=== PATIENT | male | born 1950 | race Caucasian/White ===

== ENCOUNTER 2021-11-09 16:32 | Inpatient (IN) ==
[2021-11-09] MEDS ORDERED: FAMOTIDINE 20MG IV PUSH 20 MG/5 ML SYR IV STA (16:53)
[2021-11-09] MEDS ORDERED: SODIUM CHLORIDE 0.9% 1000ML 1,000 ML IV ONE (16:53)
[2021-11-09] MEDS ORDERED: KETOROLAC TROMETHAMINE 15 MG/ML VIAL IV STA (16:53)
[2021-11-09] MEDS ORDERED: ACETAMINOPHEN 1,000 MG/100 ML VIAL IV STA (16:53)
[2021-11-09] MEDS ORDERED: ONDANSETRON INJ 2 MG/ML 2 ML VIAL IV STA (16:53)
[2021-11-09] MEDS ORDERED: MoRPHine SULFATE 4 MG/ML 1 ML CARP\\VIAL IV STA (16:55)
--- NOTE | 2021-11-09 17:12 | Emergency Department Note ---
Impression & Plan Ureterolithiasis, Hydronephrosis due to obstruction of ureter, Leukocytosis, Renal insufficiency, Transaminitis ED Provider Note NAME: MANOLO HENLEY AGE: 70 SEX: M ARRIVES VIA: Walk-In INFORMANT: Patient ED PROVIDER(S): Ross Medellin MD CHIEF COMPLAINT: Left flank pain, referred. PLAN: Disposition: Admit MEDICAL DECISION MAKING: The patient is a pleasant 70-year-old gentleman with a past medical history of prostate cancer status post prostatectomy remotely, nephrolithiasis with recent diagnosis of obstructive 11 mm left proximal ureteral stone diagnosed at outside hospital who presents emergency department referred from the urology office for evaluation and admission for anticipated procedure tomorrow the patient's severe pain. Of note, the patient's reports that he did have a fever to 100.3 on Saturday and contacted their PCPs office requesting antibiotic and was prescribed ciprofloxacin. To her knowledge the patient's urine did not show evidence of infection. Since being on Cipro he has not had any fevers. He reports he has had intermittent nausea but denies vomiting. He has had decreased oral intake due to his nausea. He denies any blood in his urine or pain with urination. On arrival, the patient is uncomfortable no acute distress, afebrile, heart rate in the 90s and stable vital signs. He appears clinically dry. He has mild left flank and left lower quadrant tenderness without guarding or rebound. WBC 12.5K with left shift. H/H 12.5/37.8 without recent for comparison. Platelets 118K without recent for comparison. Chemistry without metabolic acidosis. Creatinine 2.1 without recent values for comparison. Lactic acid 0.8, within normal limits. Procalcitonin is elevated at 9, though in the setting of the patient's renal insufficiency. Total bili 1.3 with direct bilirubin 0.5 and AST and ALT 137 and 99, respectively. Alk phos is 248. UA was obtained and demonstrates WBCs and leuk esterase albeit with epithelial cells present and no bacteria. However this does occur in the setting of the pa tient being on ciprofloxacin. Covid-19 RNA, NAAT negative. CT of the abdomen pelvis was performed and does not demonstrate any significant change in his previously noted 12 x 9 left UPJ stone with associated hydronephrosis when compared to the patient's OSH CT, which had been entered into PACS. Note, comment is made of mildly distended gallbladder with small amount of sludge. There was question of gallbladder thickening however no adjacent inflammatory change. However the patient was again reexamined and continued to have no right-sided or right upper abdominal pain. His Arizmendi sign continue to be negative. The patient was ordered for empiric Zosyn given his leukocytosis with left shift and elevated procalcitonin. He was given IV fluid hydration with 1 L initially and given the patient's renal insufficiency and stable blood pressure additional hydration given at 125cc/hr. Case was discussed with [facility] urology on-call. Appreciate recommendations. Intervention was considered for this evening however OR was not available and given the patient is hemodynamically stable reasonable to plan for stent in the morning. Continue antibiotics and IV fluids. Case was d/w Dr. Glass [facility] hospitalist who will evaluate the patient for admission. Triage Nursing notes reviewed and agree them. Prior medical records reviewed Vital Signs: reviewed and remarkable for no significant abnormalities Differential diagnosis: Renal colic, UTI, appendicitis, diverticulitis, mesenteric ischemia, aortic pathology, infections, inflammatory bowel disease, PUD, biliary pathology, as well as other pathologies. ER treatment provided: See below. Diagnostics interpreted by me: Cardiac Monitoring: An order for continuous cardiac monitoring was placed and demonstrated normal sinus rhythm, 96 bpm, no ectopy. Laboratory studies: See below Imaging studies: See below Consultation(s): [facility] urology. Dr. Glass [facility] hospitalist. HPI: The patient is a pleasant 70-year-old gentleman with a past medical history of prostate cancer status post prostatectomy remotely, nephrolithiasis with recent diagnosis of obstructive 11 mm left proximal ureteral stone diagnosed at outside hospital who presents emergency department referred from the urology office for evaluation and admission for anticipated procedure tomorrow the patient's severe pain. Of note, the patient's reports that he did have a fever to 100.3 on Saturday and contacted their PCPs office requesting antibiotic and was prescribed ciprofloxacin. To her knowledge the patient's urine did not show evidence of infection. Since being on Cipro he has not had any fevers. He reports he has had intermittent nausea but denies vomiting. He has had decreased oral intake due to his nausea. He denies any blood in his urine or pain with urination. ROS: See above HPI for pertinent positives & negatives. A total of 10 systems reviewed and were otherwise negative. VITALS:See Below PHYSICAL EXAMINATION: GENERAL: Awake, alert, uncomfortable-appearing, in no distress HENT: Normocephalic, atraumatic. Oropharynx with dry mucous membranes and otherwise unremarkable. EYES: Normal conjunctiva. Sclera non-icteric. NECK: Supple. No nuchal rigidity. FROM. No JVD. RESPIRATORY: Clear to auscultation. CARDIAC: Regular rate, normal rhythm. Extremities warm and well perfused. Pulses equal. ABDOMEN: Soft, non-distended. Mild left flank and left lower quadrant tenderness no rebound or guarding. No masses. RECTAL: Deferred. MUSCULOSKELETAL: Chest examination reveals no tenderness. The back is symmetrical on inspection without obvious abnormality. There is no CVA tenderness to palpation. No joint edema. LOWER EXTREMITIES: Calves are equal size bilaterally and non-tender. No edema. No discoloration. NEURO: Normal sensorium. No sensory or motor deficits noted. SKIN: No rash or jaundice noted. ED COURSE: Critical Care: I have personally spent greater than 35 minutes of critical care time in the direct management of this patient. This includes bedside care, interpretation of diagnostic studies, and testing, discussion with consultants, patient, and family members, and other required patient management activities. This 35 minutes is in excess of all separately billable procedures. Ross Medellin MD Past Med/Surg History Medical History Chronic back pain History of prostate cancer Nephrolithiasis Osteoarthritis Surgical History History of colonoscopy W/ POLYPECTOMY History of lithotripsy History of prostate biopsy History of prostatectomy History of shoulder surgery RT History of tonsillectomy History of tooth extraction History of total hip arthroplasty BL Family History Father Family history of diabetes mellitus Sister Family history of diabetes mellitus Social History Smoking Status: Never smoker Second Hand Exposure: No; Hx Alcohol Use: Yes Alcohol type: beer Hx Substance Use: No Preferred Language: Nepali Communication 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: 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 Beliefs That Will Affect Care: None Current Living Situation: Spouse Feels Safe at Home: Yes Assistive Devices: Denture - Upper, Denture - Lower and Glasses Allergies Allergies Allergy/AdvReac Type Severity Reaction Status Date / Time No Known Allergies Allergy Verified 11/09/21 16:48 Home Meds Home Medications Medication Instructions Recorded Confirmed ciprofloxacin HCl 500 mg tablet 500 mg PO BID 11/09/21 11/09/21 Previous Rx's Medication Instructions Recorded hydrocodone 5 mg-acetaminophen 325 1 tab PO TID PRN #10 tab 11/08/21 mg tablet Results & Data (ED) Vital Signs Vital Signs - 24 hr 11/09/21 16:34 11/09/21 18:52 11/09/21 19:30 Temperature 36.5 C Temperature Source Temporal Artery Scan Pulse Rate 96 H 65 Respiratory Rate 18 13 Respiratory Effort / Characteristics Non-Labored Respiratory Depth Normal Blood Pressure 119/84 115/65 Blood Pressure Mean 95 81 Pulse Oximetry 94 94 91 Oxygen Delivery Method Room Air Room Air Room Air Sepsis Recent Fever Within 48 Hours No Sepsis New/Unexplained Change in Mental Status No Sepsis Action Taken by Nursing No Action Required 11/09/21 20:00 Temperature Temperature Source Pulse Rate 65 Respiratory Rate 15 Respiratory Effort / Characteristics Respiratory Depth Blood Pressure 109/61 Blood Pressure Mean 77 Pulse Oximetry 90 Oxygen Delivery Method Room Air Sepsis Recent Fever Within 48 Hours Sepsis New/Unexplained Change in Mental Status Sepsis Action Taken by Nursing Laboratory Data Attestation: I reviewed the patient's lab results. Result diagrams: 11/09/21 17:21 11/09/21 17:21 Lab Results 11/09/21 11/09/21 11/09/21 Range/Units 17:21 17:21 17:21 WBC 12.56 H (4.8-10.8) K/uL RBC 3.97 L (4.7-6.1) M/uL Hgb 12.5 L (14.0-18.0) g/dL Hct 37.8 L (42-52) % MCV 95.2 (80-100) fL MCH 31.5 (25-34) pg MCHC 33.1 (32-36) g/dL RDW Std Deviation 47.9 H (36.4-46.3) fL RDW Coeff of Mateo 13.7 (11.5-14.5) % Plt Count 118 L (130-400) K/uL MPV 10.7 H (7.4-10.4) fL Immature Gran % (Auto) 1.8 % Neut % (Auto) 73.8 % Lymph % (Auto) 8.8 % Sanborn % (Auto) 14.9 % Eos % (Auto) 0.4 % Baso % (Auto) 0.3 % Neut # (Auto) 9.28 H (1.4-6.5) K/uL Lymph # (Auto) 1.10 L (1.2-3.4) K/uL [place] # (Auto) 1.87 H (0.11-0.59) K/uL Eos # (Auto) 0.05 (0-0.5) K/uL Baso # (Auto) 0.04 (0-0.2) K/uL Immature Gran # (Auto) 0.22 H (0.00-0.02) K/uL Sodium 135 L (136-145) mmol/L Potassium 4.7 (3.5-5.1) mmol/L Chloride 104 (98-107) mmol/L Carbon Dioxide 24 (21-32) mmol/L Anion Gap 7 (3-11) BUN 42 H (6-23) mg/dl Creatinine 2.15 H (0.6-1.4) mg/dl Est Cr Clr Drug Dosing 32.6 ml/min Est GFR ( Amer) 34.4 ml/min Est GFR (Non-Af Amer) 29.7 ml/min BUN/Creatinine Ratio 19.5 (10-20) Glucose 112 H (70-99(Fasting)) mg/dl Lactate 0.8 (0.4-2.0) mmol/L Calcium 8.4 L (8.5-10.1) mg/dl Total Bilirubin 1.3 H (0.2-1.0) mg/dl Direct Bilirubin (0-0.2) mg/dl AST 137 H (13-39) U/L ALT 99 H (7-52) U/L Alkaline Phosphatase 248 H (34-104) U/L Total Protein 6.4 (6.0-8.3) gm/dl Albumin 3.4 (3.4-5.0) gm/dl Globulin 3.0 (2.5-4.0) gm/dl Albumin/Globulin Ratio 1.1 (0.9-2) Lipase 11 (11-82) U/L Procalcitonin (0-0.5) ng/ml Urine Color Urine Appearance Urine pH Ur Specific Burley Urine Protein Urine Glucose (UA) Urine Ketones Urine Blood Urine Nitrite Urine Bilirubin Urine Urobilinogen Ur Leukocyte Esterase Urine WBC (Auto) Urine RBC (Auto) U Hyaline Cast (Auto) U Epithel Cells (Auto) Urine Bacteria (Auto) Ur Renal Epithelial Cell Urine Crystals Calcium Oxalate Crystal Uric Acid Crystals Triple Phos Crystals Other Crystals Amorphous Sediment Granular Casts Waxy Casts RBC Casts WBC Casts Other Casts Urine Mucus Urine Other Urine Trichomonas Urine Yeast Urine Sperm Ur Oval Fat Bodies SARS-CoV-2, RNA, NAAT (NEGATIVE) 11/09/21 11/09/21 11/09/21 Range/Units 17:21 17:21 17:21 WBC (4.8-10.8) K/uL RBC (4.7-6.1) M/uL Hgb (14.0-18.0) g/dL Hct (42-52) % MCV (80-100) fL MCH (25-34) pg MCHC (32-36) g/dL RDW Std Deviation (36.4-46.3) fL RDW Coeff of Mateo (11.5-14.5) % Plt Count (130-400) K/uL MPV (7.4-10.4) fL Immature Gran % (Auto) % Neut % (Auto) % Lymph % (Auto) % Sanborn % (Auto) % Eos % (Auto) % Baso % (Auto) % Neut # (Auto) (1.4-6.5) K/uL Lymph # (Auto) (1.2-3.4) K/uL Sanborn # (Auto) (0.11-0.59) K/uL Eos # (Auto) (0-0.5) K/uL Baso # (Auto) (0-0.2) K/uL Immature Gran # (Auto) (0.00-0.02) K/uL Sodium (136-145) mmol/L Potassium (3.5-5.1) mmol/L Chloride (98-107) mmol/L Carbon Dioxide (21-32) mmol/L Anion Gap (3-11) BUN (6-23) mg/dl Creatinine (0.6-1.4) mg/dl Est Cr Clr Drug Dosing ml/min Est GFR ( Amer) ml/min Est GFR (Non-Af Amer) ml/min BUN/Creatinine Ratio (10-20) Glucose (70-99(Fasting)) mg/dl Lactate (0.4-2.0) mmol/L Calcium (8.5-10.1) mg/dl Total Bilirubin (0.2-1.0) mg/dl Direct Bilirubin 0.5 H (0-0.2) mg/dl AST (13-39) U/L ALT (7-52) U/L Alkaline Phosphatase (34-104) U/L Total Protein (6.0-8.3) gm/dl Albumin (3.4-5.0) gm/dl Globulin (2.5-4.0) gm/dl Albumin/Globulin Ratio (0.9-2) Lipase (11-82) U/L Procalcitonin 9.90 H (0-0.5) ng/ml Urine Color Cancelled Urine Appearance Cancelled Urine pH Cancelled Ur Specific Burley Cancelled Urine Protein Cancelled Urine Glucose (UA) Cancelled Urine Ketones Cancelled Urine Blood Cancelled Urine Nitrite Cancelled Urine Bilirubin Cancelled Urine Urobilinogen Cancelled Ur Leukocyte Esterase Cancelled Urine WBC (Auto) Cancelled Urine RBC (Auto) Cancelled U Hyaline Cast (Auto) Cancelled U Epithel Cells (Auto) Cancelled Urine Bacteria (Auto) Cancelled Ur Renal Epithelial Cell Cancelled Urine Crystals Cancelled Calcium Oxalate Crystal Cancelled Uric Acid Crystals Cancelled Triple Phos Crystals Cancelled Other Crystals Cancelled Amorphous Sediment Cancelled Granular Casts Cancelled Waxy Casts Cancelled RBC Casts Cancelled WBC Casts Cancelled Other Casts Cancelled Urine Mucus Cancelled Urine Other Cancelled Urine Trichomonas Cancelled Urine Yeast Cancelled Urine Sperm Cancelled Ur Oval Fat Bodies Cancelled SARS-CoV-2, RNA, NAAT (NEGATIVE) 11/09/21 11/09/21 Range/Units 17:27 19:18 WBC (4.8-10.8) K/uL RBC (4.7-6.1) M/uL Hgb (14.0-18.0) g/dL Hct (42-52) % MCV (80-100) fL MCH (25-34) pg MCHC (32-36) g/dL RDW Std Deviation (36.4-46.3) fL RDW Coeff of Mateo (11.5-14.5) % Plt Count (130-400) K/uL MPV (7.4-10.4) fL Immature Gran % (Auto) % Neut % (Auto) % Lymph % (Auto) % Sanborn % (Auto) % Eos % (Auto) % Baso % (Auto) % Neut # (Auto) (1.4-6.5) K/uL Lymph # (Auto) (1.2-3.4) K/uL Sanborn # (Auto) (0.11-0.59) K/uL Eos # (Auto) (0-0.5) K/uL Baso # (Auto) (0-0.2) K/uL Immature Gran # (Auto) (0.00-0.02) K/uL Sodium (136-145) mmol/L Potassium (3.5-5.1) mmol/L Chloride (98-107) mmol/L Carbon Dioxide (21-32) mmol/L Anion Gap (3-11) BUN (6-23) mg/dl Creatinine (0.6-1.4) mg/dl Est Cr Clr Drug Dosing ml/min Est GFR ( Amer) ml/min Est GFR (Non-Af Amer) ml/min BUN/Creatinine Ratio (10-20) Glucose (70-99(Fasting)) mg/dl Lactate (0.4-2.0) mmol/L Calcium (8.5-10.1) mg/dl Total Bilirubin (0.2-1.0) mg/dl Direct Bilirubin (0-0.2) mg/dl AST (13-39) U/L ALT (7-52) U/L Alkaline Phosphatase (34-104) U/L Total Protein (6.0-8.3) gm/dl Albumin (3.4-5.0) gm/dl Globulin (2.5-4.0) gm/dl Albumin/Globulin Ratio (0.9-2) Lipase (11-82) U/L Procalcitonin (0-0.5) ng/ml Urine Color Dark Yellow Urine Appearance Cloudy A Urine pH 5.0 Ur Specific Burley 1.022 Urine Protein 1+ H Urine Glucose (UA) Negative Urine Ketones Negative Urine Blood 3+ H Urine Nitrite Negative Urine Bilirubin Negative Urine Urobilinogen Negative Ur Leukocyte Esterase 2+ H Urine WBC (Auto) >30 H Urine RBC (Auto) 0-4 U Hyaline Cast (Auto) 1-5 U Epithel Cells (Auto) 20-30 H Urine Bacteria (Auto) Negative Ur Renal Epithelial Cell Urine Crystals Calcium Oxalate Crystal Uric Acid Crystals Triple Phos Crystals Other Crystals Amorphous Sediment Granular Casts Waxy Casts RBC Casts WBC Casts Other Casts Urine Mucus Urine Other Urine Trichomonas Urine Yeast Not Reportable Urine Sperm Ur Oval Fat Bodies SARS-CoV-2, RNA, NAAT NEGATIVE (NEGATIVE) Administered Medications Lactated Ringer's (Lr) 1,000 mls @ 125 mls/hr IV .Q8H SARA Stop: 11/10/21 13:29 Last Admin: 11/09/21 21:51 Dose: 125 mls/hr Documented by: [id number] Discontinued Medications Sodium Chloride (Nss 1000ml) 1,000 mls @ 999 mls/hr IV .Q1H1M ONE Stop: 11/09/21 17:53 Last Infusion: 11/09/21 21:33 Dose: 0 mls/hr Documented by: [id number] Admin: 11/09/21 17:40 Dose: 999 mls/hr Documented by: [id number] Acetaminophen (Ofirmev) 1,000 mg in 100 mls @ 400 mls/hr IV NOW STA Stop: 11/09/21 17:07 Last Infusion: 11/09/21 21:33 Dose: 0 mls/hr Documented by: [id number] Admin: 11/09/21 17:39 Dose: 400 mls/hr Documented by: [id number] Famotidine (Pepcid 20mg Iv Push) 20 mg in 5 mls @ 2.5 mls/min IV NOW STA Stop: 11/09/21 16:54 Last Admin: 11/09/21 17:39 Dose: 2.5 mls/min Documented by: [id number] Piperacillin Sod/Tazobactam Sod (Zosyn) 4.5 gm in 120 mls @ 240 mls/hr IV NOW ONE Stop: 11/09/21 19:18 Last Infusion: 11/09/21 19:59 Dose: 0 mls/hr Documented by: [id number] Admin: 11/09/21 19:29 Dose: 240 mls/hr Documented by: [id number] Lactated Ringer's (Lr) 1,000 mls @ 125 mls/hr IV .Q8H SARA Stop: 12/09/21 18:59 Last Infusion: 11/09/21 21:52 Dose: 0 mls/hr Documented by: [id number] Admin: 11/09/21 20:00 Dose: 125 mls/hr Documented by: [id number] Ketorolac Tromethamine (Ketorolac Tromethamine 15 Mg/Ml Vial) 15 mg IV NOW STA Stop: 11/09/21 16:54 Last Admin: 11/09/21 17:40 Dose: 15 mg Documented by: [id number] Morphine Sulfate (Morphine Sulfate 4 Mg/Ml 1 Ml Carp\Vial) 4 mg IV NOW STA Stop: 11/09/21 16:56 Last Admin: 11/09/21 17:40 Dose: 4 mg Documented by: [id number] Ondansetron HCl (Ondansetron Inj 2 Mg/Ml 2 Ml Vial) 4 mg IV NOW STA Stop: 11/09/21 16:54 Last Admin: 11/09/21 17:40 Dose: 4 mg Documented by: [id number] Imaging Data Radiologist's Impression: Abdomen/Pelvis CT 11/09/21 18:[address] WITHOUT CONTRAST CT DOSE: 603.30 mGy.cm HISTORY: left flank pain, obstructing ureteral stone TECHNIQUE: Multiaxial CT images of the abdomen and pelvis were performed without contrast. A dose lowering technique was utilized adhering to the principles of ALARA. COMPARISON STUDY: Outside hospital abdomen and pelvis CT 11/04/2021. FINDINGS: Severe left coronary artery calcifications are noted. Calcified bilateral hilar lymph nodes. Trace left pleural effusion. Calcified granulomas are seen within the lung bases. Bibasilar linear densities consistent with subsegmental atelectasis. No pneumoperitoneum. No pneumatosis. Bilateral total hip arthroplasties. No fractures within the visualized osseous structures. There is 2. Vertebral body hemangioma noted. Small to moderate hiatus hernia. Tiny fat- containing left inguinal hernia. Degenerative changes within the lumbar spine. A 2 cm bilobed hypodense lesion within the left hepatic lobe. This is incompletely characterized on this noncontrast study but statistically represents a cyst. There are few punctate calcified granulomas within the spleen. The adrenal glands and pancreas unremarkable. The gallbladder is mildly distended. There appears to be a small amount of sludge within the gallbladder. Questionable gallbladder wall thickening. However, no surrounding inflammatory change identified. Mild to moderate bilateral perinephric edema, unchanged. This is likely chronic. There is a punctate stone within the right kidney. No right- sided hydronephrosis. The bladder is not well visualized due to metallic artifact from the bilateral hip hardware. However, no definite bladder wall thickening. There is a 12 x 9 mm left UPJ stone which is unchanged in position. Moderate left hydronephrosis persists. There are few punctate stones within the left kidney. No retroperitoneal lymphadenopathy. Moderate calcified plaque within the normal caliber abdominal aorta. No definite pelvic free fluid. Suboptimal evaluation for bowel pathology due to the lack of intravenous and oral contrast. However, there is no definite bowel wall thickening or obstruction. Postoperative changes likely representing a prior ileocecectomy. 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 IMPRESSION: 1. No significant change in the 12 x 9 mm left UPJ stone resulting in moderate left hydronephrosis. 2. Stable bilateral nephrolithiasis. 3. No definite bowel wall thickening or obstruction. 4. Mildly distended gallbladder which appears to contain a small amount of sludge. There is questionable gallbladder wall thickening. However, no adjacent inflammatory change. If the patient is complaining of right upper quadrant pain then consider follow-up abdominal ultrasound for further evaluation. 5. Trace left pleural effusion. 6. Additional findings as described above. ACT 112: Negative or not required by law. Electronically signed by: Benigno Lauren M.D. 11/09/2021 6:52 PM Discharge Plan Visit Data Chief Complaint: Flank Pain Stated Complaint: KIDNEY PAIN, POS STONE ED Provider: Ross Medellin Discharge Problem: Ureterolithiasis, Hydronephrosis due to obstruction of ureter, Leukocytosis, Renal insufficiency, Transaminitis Patient Disposition: Admitted As Inpatient Discharge Instructions Interventions: ED Discharge Assessment Last Done: 11/09/21 20:55 Discharge Problem: Leukocytosis Qualifiers: Leukocytosis type: bandemia Qualified Code(s): D72.825 - Bandemia
[2021-11-09 17:46] LABS: Basophils # (auto) 0.04 K/uL (0-0.2); Basophils % (auto) 0.3 %; Eosinophils # (auto) 0.05 K/uL (0-0.5); Eosinophils % (auto) 0.4 %; Hematocrit (blood only) 37.8 % (42-52); Hemoglobin 12.5 g/dL (14.0-18.0); Immature Granulocytes # (auto) 0.22 K/uL (0.00-0.02); Immature Granulocytes % (auto) 1.8 %; Lymphocytes % (auto) 8.8 %; Mean Corpuscular Hemoglobin 31.5 pg (25-34); Mean Corpuscular Hgb Conc 33.1 g/dL (32-36); Mean Corpuscular Volume 95.2 fL (80-100); Mean Platelet Volume 10.7 fL (7.4-10.4); Monocytes # (auto) 1.87 K/uL (0.11-0.59); Monocytes % (auto) 14.9 %; Neutrophils # (auto) 9.28 K/uL (1.4-6.5); Neutrophils % (auto) 73.8 %; Platelet Count 118 K/uL (130-400); RDW Coefficient of Variation 13.7 % (11.5-14.5); RDW Standard Deviation 47.9 fL (36.4-46.3); Red Blood Count 3.97 M/uL (4.7-6.1); White Blood Count 12.56 K/uL (4.8-10.8)
[2021-11-09 18:11] LABS: Albumin Globulin Ratio 1.1 (0.9-2); Albumin Level 3.4 gm/dl (3.4-5.0); BUN Creatinine Ratio 19.5 (10-20); Bilirubin,Total 1.3 mg/dl (0.2-1.0); Calcium 8.4 mg/dl (8.5-10.1); Creatinine Clr Calc Pharmacy 32.6 ml/min; Est GFR (African American) 34.4 ml/min; Est GFR (Non-African American) 29.7 ml/min; Potassium 4.7 mmol/L (3.5-5.1); Total Protein 6.4 gm/dl (6.0-8.3)
[2021-11-09] MEDS ORDERED: PIPERACILL/TAZOBAC CONSULT ACTIVE PRN ×2 (18:49→21:30)
[2021-11-09] MEDS ORDERED: PIPERACILLIN/TAZOBACTAM 4.5 GM/120 ML BAG IV ONE (18:49)
--- NOTE | 2021-11-09 18:55 | CT Scan Report ---
ABDOMEN AND PELVIS CT WITHOUT CONTRAST CT DOSE: 603.30 mGy.cm HISTORY: left flank pain, obstructing ureteral stone TECHNIQUE: Multiaxial CT images of the abdomen and pelvis were performed without contrast. A dose lo wering technique was utilized adhering to the principles of ALARA. COMPARISON STUDY: Outside hospital abdomen and pelvis CT 11/04/2021. FINDINGS: Severe left coronary artery calcifications are noted. Calcified bilateral hilar lymph nodes . Trace left pleural effusion. Calcified granulomas are seen within the lung bases. Bibasilar linear densities consistent with subsegmental atelectasis. No pneumoperitoneum. No pneumatosis. Bilateral to [place] hip arthroplasties. No fractures within the visualized osseous structures. There is 2. Vertebral body hemangioma noted. Small to moderate hiatus hernia. Tiny fat-containing left inguina l hernia. Degenerative changes within the lumbar spine. A 2 cm bilobed hypodense lesion within the le ft hepatic lobe. This is incompletely characterized on this noncontrast study but statistically repre sents a cyst. There are few punctate calcified granulomas within the spleen. The adrenal glands and p ancreas unremarkable. The gallbladder is mildly distended. There appears to be a small amount of slud ge within the gallbladder. Questionable gallbladder wall thickening. However, no surrounding inflamma tory change identified. Mild to moderate bilateral perinephric edema, unchanged. This is likely chron ic. There is a punctate stone within the right kidney. No right-sided hydronephrosis. The bladder is not well visualized due to metallic artifact from the bilateral hip hardware. However, no definite bl adder wall thickening. There is a 12 x 9 mm left UPJ stone which is unchanged in position. Moderate l eft hydronephrosis persists. There are few punctate stones within the left kidney. No retroperitoneal lymphadenopathy. Moderate calcified plaque within the normal caliber abdominal aorta. No definite pe lvic free fluid. Suboptimal evaluation for bowel pathology due to the lack of intravenous and oral co ntrast. However, there is no definite bowel wall thickening or obstruction. Postoperative changes lik andrew representing a prior ileocecectomy. 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 IMPRESSION: 1. No significant change in the 12 x 9 mm left UPJ stone resulting in moderate left hydronephrosis. 2. Stable bilateral nephrolithiasis. 3. No definite bowel wall thickening or obstruction. 4. Mildly distended gallbladder which appears to contain a small amount of sludge. There is questiona ble gallbladder wall thickening. However, no adjacent inflammatory change. If the patient is complain ing of right upper quadrant pain then consider follow-up abdominal ultrasound for further evaluation. 5. Trace left pleural effusion. 6. Additional findings as described above. ACT 112: Negative or not required by law. Electronically signed by: Benigno Lauren M.D. 11/09/2021 6:52 PM
[2021-11-09] MEDS ORDERED: LACTATED RINGER'S 1,000 ML IV SCH (19:00)
[2021-11-09 19:36] LABS: Appearance Urine Cloudy (Clear); Bacteria Urine Automated Negative (Negative); Bilirubin Urine Negative (Negative); Blood Urine 3+ (Negative); Color Urine Dark Yellow; Epithelial Cell Urine Auto 20-30 /lpf (0-5); Glucose Urine UA Negative (Negative); Ketones Urine Negative (Negative); Leukocyte Esterase Urine 2+ (Negative); Nitrite Urine Negative (Negative); Protein Urine 1+ (Negative); RBC Urine Automated 0-4 /hpf (0-4); Specific Gravity Urine 1.022 (1.000-1.030); Urobilinogen Urine Negative (Negative); WBC Urine Automated >30 /hpf (0-5)
--- NOTE | 2021-11-09 20:05 | History & Physical Report ---
Date of Service November 09, 2021 Assessment & Plan (1) Nephrolithiasis: Plan: 70yo male with history of prior nephrolithiasis presenting with large 12 x 9mm renals stone at the left uretero-pelvic junction with moderate left hydronephrosis. +UA with elevated procalcitonin. Patient presently afebrile, HD stable, nontoxic in appearance. -Admit to medical -Follow urine cultures -Continue Zosyn -Morphine PRN -Tylenol PRN -Urology consultation appreciated. Will keep patient NPO after midnight for planned OR in AM (2) MIRIAM (acute kidney injury): Plan: BUN=42, Cr=2.15 from normal baseline in 2019. Suspect pre-renal etiology. Patient has not been eating or drinking x 5 days. -Continue IVF - LR at 125mL/hr x 2 liters -Avoid nephrotoxic agents -Renal dosing of Zosyn and other medications as needed -Repeat chemistry in AM (3) Abnormal LFTs: Plan: Etiology unclear. Patient has no RUQ tenderness. Negative Arizmendi's. -Repeat LFTs in AM -Zosyn as above for UTI + stone Plan: F/E/N - LR at 125mL/hr x 2 liters, monitor electroltyes and replete as needed, Clear liquid diet now with NPO after midnight Ppx - no prophylaxis now Code - Full Dispo - Admit to medical History of Present Illness Chief Complaint: Left flank pain Primary Care Provider: Helena Pederson MD Jimmie Alexandre is a 70yo male presenting with left flank pain. Patient was diagnosed with a large left nephrolithiasis 5 days ago at an outside facility by CT scan - 1cm stone at the left ureteral pelvic junction. Per , no evidence of infection in the urine at that time. He was doing fairly well at home, managing pain. He had an elevated temperature of 100.3 on Saturday therefore contacted his PCP and was given a prescription for Cipro which he has been taking without difficulty as well as hydrocodone. He was seen by Urology this afternoon. Patient presents to the ER for significant flank pain. He has not had fever since starting the antibiotic. Denies rigors. He has some nausea and has not been eating or drinking over the last 5 days. Denies chest pain, cough, SOB, abdominal pain, vomiting, diarrhea, constipation. No additional complaints at this time. ER Course: Tylenol 1gm, Pepcid 20mg IV, NSS x 1L, Zofran 4mg IV, Toradol 15mg IV, Morphine 4mg IV, Zosyn 4.5gm Allergies Allergy/AdvReac Type Severity Reaction Status Date / Time No Known Allergies Allergy Verified 11/09/21 16:48 Home Medications Medication Instructions Recorded Confirmed Type hydrocodone 5 mg-acetaminophen 325 1 tab PO TID PRN #10 tab 11/08/21 11/09/21 Rx mg tablet ciprofloxacin HCl 500 mg tablet 500 mg PO BID 11/09/21 11/09/21 History Past Med/Surg History Medical History (Updated 11/09/21 @ 20:41 by Brianna Glass DO) Chronic back pain History of prostate cancer Nephrolithiasis Osteoarthritis Surgical History History of colonoscopy W/ POLYPECTOMY History of lithotripsy History of prostate biopsy History of prostatectomy History of shoulder surgery RT History of tonsillectomy History of tooth extraction History of total hip arthroplasty BL Family History Father Family history of diabetes mellitus Sister Family history of diabetes mellitus Social History Smoking Status: Never smoker Second Hand Exposure: No; Hx Alcohol Use: Yes Alcohol type: beer Hx Substance Use: No Preferred Language: Ghanaian Communication Ability: Effective Program/Music Director Required: No Beliefs That Will Affect Care: None Current Living Situation: Spouse Feels Safe at Home: Yes Assistive Devices: Denture - Upper, Denture - Lower and Glasses Review of Systems Review of Systems: All systems reviewed & are unremarkable except as noted in HPI & below Physical Exam Physical Exam: General: patient resting comfortably, NAD, non-toxic in appearance, AA&O x 4 Skin: warm, dry, intact, no rashes or lesions HEENT: NC/AT, PERRL, EOMI, anicteric sclera, conjunctiva without injection, external ear normal to inspection and nontender, nares patent, dry mucus membranes, dentition intact, no oropharyngeal lesions, neck supple, trachea midline, no LAD, no thyromegaly, no JVD Heart: +S1/S2, regular, no m/r/g Lungs: equal air entry bilaterally, no rales/rhonchi/wheezes Abd: +BS, soft, ND, LLQ abdominal pain without rebound/guarding, no masses/organomegaly/ascites, left flank tenderness Ext: warm, 2+ pulses in UE/LE bilaterally, no clubbing/cyanosis or edema Neuro: nonfocal, patient AA&O x 4, speech intact, no facial droop, moving all extremities on command with equal strength 5/5 Results & Data Results & Data ([facility]) Vital Signs (Past 12 Hours) Vital Signs Temp Pulse Resp BP Pulse Ox 11/09/21 19:30 65 13 115/65 91 11/09/21 18:52 94 11/09/21 16:34 36.5 C 96 H 18 119/84 94 Laboratory Results Laboratory Results WBC 12.56 K/uL (4.8-10.8) H 11/09/21 17:21 RBC 3.97 M/uL (4.7-6.1) L 11/09/21 17:21 Hgb 12.5 g/dL (14.0-18.0) L 11/09/21 17:21 Hct 37.8 % (42-52) L 11/09/21 17:21 MCV 95.2 fL (80-100) 11/09/21 17:21 MCH 31.5 pg (25-34) 11/09/21 17:21 MCHC 33.1 g/dL (32-36) 11/09/21 17:21 RDW Std Deviation 47.9 fL (36.4-46.3) H 11/09/21 17:21 RDW Coeff of Mateo 13.7 % (11.5-14.5) 11/09/21 17:21 Plt Count 118 K/uL (130-400) L 11/09/21 17:21 MPV 10.7 fL (7.4-10.4) H 11/09/21 17:21 Immature Gran % (Auto) 1.8 % 11/09/21 17:21 Neut % (Auto) 73.8 % 11/09/21 17:21 Lymph % (Auto) 8.8 % 11/09/21 17:21 [place] % (Auto) 14.9 % 11/09/21 17:21 Eos % (Auto) 0.4 % 11/09/21 17:21 Baso % (Auto) 0.3 % 11/09/21 17:21 Neut # (Auto) 9.28 K/uL (1.4-6.5) H 11/09/21 17:21 Lymph # (Auto) 1.10 K/uL (1.2-3.4) L 11/09/21 17:21 [place] # (Auto) 1.87 K/uL (0.11-0.59) H 11/09/21 17:21 Eos # (Auto) 0.05 K/uL (0-0.5) 11/09/21 17:21 Baso # (Auto) 0.04 K/uL (0-0.2) 11/09/21 17:21 Immature Gran # (Auto) 0.22 K/uL (0.00-0.02) H 11/09/21 17:21 Sodium 135 mmol/L (136-145) L 11/09/21 17:21 Potassium 4.7 mmol/L (3.5-5.1) 11/09/21 17:21 Chloride 104 mmol/L (98-107) 11/09/21 17:21 Carbon Dioxide 24 mmol/L (21-32) 11/09/21 17:21 Anion Gap 7 (3-11) 11/09/21 17:21 BUN 42 mg/dl (6-23) H 11/09/21 17:21 Creatinine 2.15 mg/dl (0.6-1.4) H 11/09/21 17:21 Est Cr Clr Drug Dosing 32.6 ml/min 11/09/21 17:21 Est GFR ( Amer) 34.4 ml/min 11/09/21 17:21 Est GFR (Non-Af Amer) 29.7 ml/min 11/09/21 17:21 BUN/Creatinine Ratio 19.5 (10-20) 11/09/21 17:21 Glucose 112 mg/dl (70-99(Fasting)) H 11/09/21 17:21 Lactate 0.8 mmol/L (0.4-2.0) 11/09/21 17:21 Calcium 8.4 mg/dl (8.5-10.1) L 11/09/21 17:21 Total Bilirubin 1.3 mg/dl (0.2-1.0) H 11/09/21 17:21 Direct Bilirubin 0.5 mg/dl (0-0.2) H 11/09/21 17:21 AST 137 U/L (13-39) H 11/09/21 17:21 ALT 99 U/L (7-52) H 11/09/21 17:21 Alkaline Phosphatase 248 U/L (34-104) H 11/09/21 17:21 Total Protein 6.4 gm/dl (6.0-8.3) 11/09/21 17:21 Albumin 3.4 gm/dl (3.4-5.0) 11/09/21 17:21 Globulin 3.0 gm/dl (2.5-4.0) 11/09/21 17:21 Albumin/Globulin Ratio 1.1 (0.9-2) 11/09/21 17:21 Lipase 11 U/L (11-82) 11/09/21 17:21 Procalcitonin 9.90 ng/ml (0-0.5) H 11/09/21 17:21 Urine Color Dark Yellow 11/09/21 19:18 Urine Appearance Cloudy (Clear) A 11/09/21 19:18 Urine pH 5.0 (4.5-7.5) 11/09/21 19:18 Ur Specific Ubly 1.022 (1.000-1.030) 11/09/21 19:18 Urine Protein 1+ (Negative) H 11/09/21 19:18 Urine Glucose (UA) Negative (Negative) 11/09/21 19:18 Urine Ketones Negative (Negative) 11/09/21 19:18 Urine Blood 3+ (Negative) H 11/09/21 19:18 Urine Nitrite Negative (Negative) 11/09/21 19:18 Urine Bilirubin Negative (Negative) 11/09/21 19:18 Urine Urobilinogen Negative (Negative) 11/09/21 19:18 Ur Leukocyte Esterase 2+ (Negative) H 11/09/21 19:18 Urine WBC (Auto) >30 /hpf (0-5) H 11/09/21 19:18 Urine RBC (Auto) 0-4 /hpf (0-4) 11/09/21 19:18 U Hyaline Cast (Auto) 1-5 /lpf (0-5) 11/09/21 19:18 U Epithel Cells (Auto) 20-30 /lpf (0-5) H 11/09/21 19:18 Urine Bacteria (Auto) Negative (Negative) 11/09/21 19:18 Ur Renal Epithelial Cell Cancelled 11/09/21 17:21 Urine Crystals Cancelled 11/09/21 17:21 Calcium Oxalate Crystal Cancelled 11/09/21 17:21 Uric Acid Crystals Cancelled 11/09/21 17:21 Triple Phos Crystals Cancelled 11/09/21 17:21 Other Crystals Cancelled 11/09/21 17:21 Amorphous Sediment Cancelled 11/09/21 17:21 Granular Casts Cancelled 11/09/21 17:21 Waxy Casts Cancelled 11/09/21 17:21 RBC Casts Cancelled 11/09/21 17:21 WBC Casts Cancelled 11/09/21 17:21 Other Casts Cancelled 11/09/21 17:21 Urine Mucus Cancelled 11/09/21 17:21 Urine Other Cancelled 11/09/21 17:21 Urine Trichomonas Cancelled 11/09/21 17:21 Urine Yeast Not Reportable 11/09/21 19:18 Urine Sperm Cancelled 11/09/21 17:21 Ur Oval Fat Bodies Cancelled 11/09/21 17:21 SARS-CoV-2, RNA, NAAT NEGATIVE (NEGATIVE) 11/09/21 17:27 Impressions Abdomen/Pelvis CT 11/09/21 18:[address] WITHOUT CONTRAST CT DOSE: 603.30 mGy.cm HISTORY: left flank pain, obstructing ureteral stone TECHNIQUE: Multiaxial CT images of the abdomen and pelvis were performed without contrast. A dose lowering technique was utilized adhering to the principles of ALARA. COMPARISON STUDY: Outside hospital abdomen and pelvis CT 11/04/2021. FINDINGS: Severe left coronary artery calcifications are noted. Calcified bilateral hilar lymph nodes. Trace left pleural effusion. Calcified granulomas are seen within the lung bases. Bibasilar linear densities consistent with subsegmental atelectasis. No pneumoperitoneum. No pneumatosis. Bilateral total hip arthroplasties. No fractures within the visualized osseous structures. There is 2. Vertebral body hemangioma noted. Small to moderate hiatus hernia. Tiny fat- containing left inguinal hernia. Degenerative changes within the lumbar spine. A 2 cm bilobed hypodense lesion within the left hepatic lobe. This is incompletely characterized on this noncontrast study but statistically represents a cyst. There are few punctate calcified granulomas within the spleen. The adrenal glands and pancreas unremarkable. The gallbladder is mildly distended. There appears to be a small amount of sludge within the gallbladder. Questionable gallbladder wall thickening. However, no surrounding inflammatory change identified. Mild to moderate bilateral perinephric edema, unchanged. This is likely chronic. There is a punctate stone within the right kidney. No right- sided hydronephrosis. The bladder is not well visualized due to metallic artifact from the bilateral hip hardware. However, no definite bladder wall thickening. There is a 12 x 9 mm left UPJ stone which is unchanged in position. Moderate left hydronephrosis persists. There are few punctate stones within the left kidney. No retroperitoneal lymphadenopathy. Moderate calcified plaque within the normal caliber abdominal aorta. No definite pelvic free fluid. Suboptimal evaluation for bowel pathology due to the lack of intravenous and oral contrast. However, there is no definite bowel wall thickening or obstruction. Postoperative changes likely representing a prior ileocecectomy. 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 IMPRESSION: 1. No significant change in the 12 x 9 mm left UPJ stone resulting in moderate left hydronephrosis. 2. Stable bilateral nephrolithiasis. 3. No definite bowel wall thickening or obstruction. 4. Mildly distended gallbladder which appears to contain a small amount of sludge. There is questionable gallbladder wall thickening. However, no adjacent inflammatory change. If the patient is complaining of right upper quadrant pain then consider follow-up abdominal ultrasound for further evaluation. 5. Trace left pleural effusion. 6. Additional findings as described above. ACT 112: Negative or not required by law. Electronically signed by: Benigno Lauren M.D. 11/09/2021 6:52 PM Code Status & VTE Plan VTE Prophylaxis Plan VTE Prophylaxis will be ordered: No PG Care Time/CCT Total # of Minutes Spent Total Time Spent with Patient: Total time spent is greater than 50% in coordination of care (as documented) at patient's floor/unit and/or counseling patient: Coding Level of Care Code 13290 Initial Inpt Care Lvl 2 Diagnoses Nephrolithiasis N20.0 MIRIAM (acute kidney injury) N17.9 Abnormal LFTs R79.89
[2021-11-09] MEDS ORDERED: ondansetron HCL 6 MG in DEXTROSE 5% 50 ML IV PRN (21:30)
[2021-11-09] MEDS ORDERED: DOCUSATE SODIUM 100 MG CAP PO PRN (21:30)
[2021-11-09] MEDS ORDERED: MoRPHine SULFATE 2 MG/ML CARP IV PRN (21:30)
[2021-11-09] MEDS: LACTATED RINGER'S 1,000 ML IV SCH (21:51)
[2021-11-10] MEDS: PIPERACILLIN/TAZOBACTAM 3.375 GM in DEXTROSE 5% 100 ML IV SCH ×3 (01:47→16:59)
[2021-11-10] MEDS: LACTATED RINGER'S 1,000 ML IV SCH (05:06)
--- NOTE | 2021-11-10 07:35 | Hospitalist Progress Note ---
Date of Service November 10, 2021 Assessment & Plan (1) Sepsis: Plan: Leukocytosis, tachycardia, +UA, procal 9, MIRIAM with Cr 2.15 with normal baseline (1.1 earlier this week at [facility], WBC was 14k, sent with PO opiates but no abx until PCP sent Cipro after temp 100.3 Saturday). Lactic wnl at 0.8 likely 2nd to obstructing stone, urology on consult Also obtaining RUQ US, Anaplasmosis given elevated LFT/low plt and thickening onCTAP NPO for OR today with Urology WBC improving, Cr 2.01. afebrile (of note, given dose toradol 15mg IV in ER, would avoid NSAIDs) IVF ordered, would decreased rate to 80cc/hr post-op Remains on Zosyn Monitor blood/urine cx (has taken ~6 tablets Cipro to note) Added flomax HS Monitor labs in AM (2) Nephrolithiasis: Plan: 70yo male with history of prior nephrolithiasis presenting with large 12 x 9mm renals stone at the left uretero-pelvic junction with moderate left hydronephrosis. +UA with elevated procalcitonin. Cr 2.15 (unclear baseline as does not have many other values in system, last Cr 1.0 in 2019) Patient presently afebrile, HD stable, nontoxic in appearance. Zosyn/IVF/Urology consult/pain control as needed Outlined as above (3) MIRIAM (acute kidney injury): Plan: BUN=42, Cr=2.15 from normal baseline in 2019. Suspect pre-renal and post-renal etiology. Patient has not been eating or drinking x 5 days. IVF as above, urology consulted given obstructing stone Avoid further NSAIDs as given in ER, renally dose medications when able BMP in AM (4) Abnormal LFTs: Plan: Etiology unclear. Patient has no RUQ tenderness. Negative Arizmendi's. LFTs remain elevated but improved Given findings on CTAP on admission, will check RUQ Also checking anaplasmosis given low platelets Monitor in AM Plan: F/E/N - LR at 125mL/hr x 2 liters, monitor electrolytes and replete as needed, NPO for OR this morning Ppx - no prophylaxis now as planned OR, SCDs ordered Code - Full Admission and Anticipated Discharge Date Admission Date: November 09, 2021 Supervising Physician Co-Signing Physician Notes PA Supervision Note: I did not personally see or examine the patient today, but I verified all escamilla points of GEOVANNA Wakefield's assessment and plan with the following exceptions/additions: None Subjective Eval this morning. Pain currently controlled but present to LLQ/L flank. He notes problems started last Saturday. (Of note, no BM since last reported). He had been sitting down after dinner and watching tv w/ and stated didn't feel well. Up to bathroom and vomited up everything he had eaten for the day. He notes he was feeling better after that but on Saturday after working in [employer] him and went out to eat pizza. He states after he ate a piece he became nauseated again and vomited. No bile. No diarrhea noted. No RUQ pain but still some nausea. Urine dark/blood tinged. Denies NSAID use and was only using Tylenol arthritis at home. Went to ER w increased pain saturday, diagnosed with stone but given po pain meds and shot for pain but no abx. Had fever 100.3 following and placed on Cipro by PCP. He believes he took doses from Saturday evening up until morning when seen by Urology in afternoon w continued pain/discomfort and came to ER for intervention. Currently NPO for OR. Discussed checking RUQ given elevated LFTs and nausea/vomiting. No fever/chills currently , denies chest pain or shortness of breath. Questions/concerns addressed at this time. Review of Systems Review of Systems: All systems reviewed & are unremarkable except as noted in HPI & below Physical Exam Physical Exam: General: WN/WD male, resting comfortably in bed, NAD HEENT: head normocephalic, atraumatic, pupils equal and reactive to light, mm DRY, trachea midline, no deviation Resp: CTAB, no w/c/r, on room air CV: RRR, no m/r/g, no edema, pulses palpable GI: +BS, slightly hypoactive, tender to palpation LLQ/L flank. +L CVA tenderness : no borja MSK/Neuro: moves all extremities, no focal deficits, answering questions appropriately, not confused, no slurred speech/facial droop Psych: AOX3, cooperative Results & Data Results & Data ([facility]) Vital Signs (Past 12 Hours) Vital Signs Temp Pulse Pulse Resp BP BP Pulse Ox 11/10/21 07:02 36.7 C 79 18 131/73 94 11/10/21 05:09 36.8 C 64 17 112/63 94 11/10/21 02:14 36.6 C 59 L 16 93/54 L 94 11/09/21 21:30 36.6 C 58 L 17 115/64 95 11/09/21 20:30 65 12 102/59 L 90 11/09/21 20:00 65 15 109/61 90 Laboratory Results 11/09/21 11/09/21 11/09/21 Range/Units 21:47 19:18 17:27 WBC (4.8-10.8) K/uL RBC (4.7-6.1) M/uL Hgb (14.0-18.0) g/dL Hct (42-52) % MCV (80-100) fL MCH (25-34) pg MCHC (32-36) g/dL RDW Std Deviation (36.4-46.3) fL RDW Coeff of Mateo (11.5-14.5) % Plt Count (130-400) K/uL MPV (7.4-10.4) fL Immature Gran % (Auto) % Neut % (Auto) % Lymph % (Auto) % O'Brien % (Auto) % Eos % (Auto) % Baso % (Auto) % Neut # (Auto) (1.4-6.5) K/uL Lymph # (Auto) (1.2-3.4) K/uL O'Brien # (Auto) (0.11-0.59) K/uL Eos # (Auto) (0-0.5) K/uL Baso # (Auto) (0-0.2) K/uL Immature Gran # (Auto) (0.00-0.02) K/uL Sodium (136-145) mmol/L Potassium (3.5-5.1) mmol/L Chloride (98-107) mmol/L Carbon Dioxide (21-32) mmol/L Anion Gap (3-11) BUN (6-23) mg/dl Creatinine (0.6-1.4) mg/dl Est Cr Clr Drug Dosing ml/min Est GFR ( Amer) ml/min Est GFR (Non-Af Amer) ml/min BUN/Creatinine Ratio (10-20) Glucose (70-99(Fasting)) mg/dl Lactate (0.4-2.0) mmol/L Calcium (8.5-10.1) mg/dl Magnesium 2.4 (1.7-2.4) mg/dl Total Bilirubin (0.2-1.0) mg/dl Direct Bilirubin (0-0.2) mg/dl AST (13-39) U/L ALT (7-52) U/L Alkaline Phosphatase (34-104) U/L Total Protein (6.0-8.3) gm/dl Albumin (3.4-5.0) gm/dl Globulin (2.5-4.0) gm/dl Albumin/Globulin Ratio (0.9-2) Lipase (11-82) U/L Procalcitonin (0-0.5) ng/ml Urine Color Dark Yellow Urine Appearance Cloudy A Urine pH 5.0 Ur Specific [place] 1.022 Urine Protein 1+ H Urine Glucose (UA) Negative Urine Ketones Negative Urine Blood 3+ H Urine Nitrite Negative Urine Bilirubin Negative Urine Urobilinogen Negative Ur Leukocyte Esterase 2+ H Urine WBC (Auto) >30 H Urine RBC (Auto) 0-4 U Hyaline Cast (Auto) 1-5 U Epithel Cells (Auto) 20-30 H Urine Bacteria (Auto) Negative Ur Renal Epithelial Cell Urine Crystals Calcium Oxalate Crystal Uric Acid Crystals Triple Phos Crystals Other Crystals Amorphous Sediment Granular Casts Waxy Casts RBC Casts WBC Casts Other Casts Urine Mucus Urine Other Urine Trichomonas Urine Yeast Not Reportable Urine Sperm Ur Oval Fat Bodies SARS-CoV-2, RNA, NAAT NEGATIVE (NEGATIVE) 11/09/21 11/09/21 11/09/21 Range/Units 17:21 17:21 17:21 WBC (4.8-10.8) K/uL RBC (4.7-6.1) M/uL Hgb (14.0-18.0) g/dL Hct (42-52) % MCV (80-100) fL MCH (25-34) pg MCHC (32-36) g/dL RDW Std Deviation (36.4-46.3) fL RDW Coeff of Mateo (11.5-14.5) % Plt Count (130-400) K/uL MPV (7.4-10.4) fL Immature Gran % (Auto) % Neut % (Auto) % Lymph % (Auto) % O'Brien % (Auto) % Eos % (Auto) % Baso % (Auto) % Neut # (Auto) (1.4-6.5) K/uL Lymph # (Auto) (1.2-3.4) K/uL O'Brien # (Auto) (0.11-0.59) K/uL Eos # (Auto) (0-0.5) K/uL Baso # (Auto) (0-0.2) K/uL Immature Gran # (Auto) (0.00-0.02) K/uL Sodium (136-145) mmol/L Potassium (3.5-5.1) mmol/L Chloride (98-107) mmol/L Carbon Dioxide (21-32) mmol/L Anion Gap (3-11) BUN (6-23) mg/dl Creatinine (0.6-1.4) mg/dl Est Cr Clr Drug Dosing ml/min Est GFR ( Amer) ml/min Est GFR (Non-Af Amer) ml/min BUN/Creatinine Ratio (10-20) Glucose (70-99(Fasting)) mg/dl Lactate (0.4-2.0) mmol/L Calcium (8.5-10.1) mg/dl Magnesium (1.7-2.4) mg/dl Total Bilirubin (0.2-1.0) mg/dl Direct Bilirubin 0.5 H (0-0.2) mg/dl AST (13-39) U/L ALT (7-52) U/L Alkaline Phosphatase (34-104) U/L Total Protein (6.0-8.3) gm/dl Albumin (3.4-5.0) gm/dl Globulin (2.5-4.0) gm/dl Albumin/Globulin Ratio (0.9-2) Lipase (11-82) U/L Procalcitonin 9.90 H (0-0.5) ng/ml Urine Color Cancelled Urine Appearance Cancelled Urine pH Cancelled Ur Specific [place] Cancelled Urine Protein Cancelled Urine Glucose (UA) Cancelled Urine Ketones Cancelled Urine Blood Cancelled Urine Nitrite Cancelled Urine Bilirubin Cancelled Urine Urobilinogen Cancelled Ur Leukocyte Esterase Cancelled Urine WBC (Auto) Cancelled Urine RBC (Auto) Cancelled U Hyaline Cast (Auto) Cancelled U Epithel Cells (Auto) Cancelled Urine Bacteria (Auto) Cancelled Ur Renal Epithelial Cell Cancelled Urine Crystals Cancelled Calcium Oxalate Crystal Cancelled Uric Acid Crystals Cancelled Triple Phos Crystals Cancelled Other Crystals Cancelled Amorphous Sediment Cancelled Granular Casts Cancelled Waxy Casts Cancelled RBC Casts Cancelled WBC Casts Cancelled Other Casts Cancelled Urine Mucus Cancelled Urine Other Cancelled Urine Trichomonas Cancelled Urine Yeast Cancelled Urine Sperm Cancelled Ur Oval Fat Bodies Cancelled SARS-CoV-2, RNA, NAAT (NEGATIVE) 11/09/21 11/09/21 11/09/21 Range/Units 17:21 17:21 17:21 WBC 12.56 H (4.8-10.8) K/uL RBC 3.97 L (4.7-6.1) M/uL Hgb 12.5 L (14.0-18.0) g/dL Hct 37.8 L (42-52) % MCV 95.2 (80-100) fL MCH 31.5 (25-34) pg MCHC 33.1 (32-36) g/dL RDW Std Deviation 47.9 H (36.4-46.3) fL RDW Coeff of Mateo 13.7 (11.5-14.5) % Plt Count 118 L (130-400) K/uL MPV 10.7 H (7.4-10.4) fL Immature Gran % (Auto) 1.8 % Neut % (Auto) 73.8 % Lymph % (Auto) 8.8 % O'Brien % (Auto) 14.9 % Eos % (Auto) 0.4 % Baso % (Auto) 0.3 % Neut # (Auto) 9.28 H (1.4-6.5) K/uL Lymph # (Auto) 1.10 L (1.2-3.4) K/uL O'Brien # (Auto) 1.87 H (0.11-0.59) K/uL Eos # (Auto) 0.05 (0-0.5) K/uL Baso # (Auto) 0.04 (0-0.2) K/uL Immature Gran # (Auto) 0.22 H (0.00-0.02) K/uL Sodium 135 L (136-145) mmol/L Potassium 4.7 (3.5-5.1) mmol/L Chloride 104 (98-107) mmol/L Carbon Dioxide 24 (21-32) mmol/L Anion Gap 7 (3-11) BUN 42 H (6-23) mg/dl Creatinine 2.15 H (0.6-1.4) mg/dl Est Cr Clr Drug Dosing 32.6 ml/min Est GFR ( Amer) 34.4 ml/min Est GFR (Non-Af Amer) 29.7 ml/min BUN/Creatinine Ratio 19.5 (10-20) Glucose 112 H (70-99(Fasting)) mg/dl Lactate 0.8 (0.4-2.0) mmol/L Calcium 8.4 L (8.5-10.1) mg/dl Magnesium (1.7-2.4) mg/dl Total Bilirubin 1.3 H (0.2-1.0) mg/dl Direct Bilirubin (0-0.2) mg/dl AST 137 H (13-39) U/L ALT 99 H (7-52) U/L Alkaline Phosphatase 248 H (34-104) U/L Total Protein 6.4 (6.0-8.3) gm/dl Albumin 3.4 (3.4-5.0) gm/dl Globulin 3.0 (2.5-4.0) gm/dl Albumin/Globulin Ratio 1.1 (0.9-2) Lipase 11 (11-82) U/L Procalcitonin (0-0.5) ng/ml Urine Color Urine Appearance Urine pH Ur Specific [place] Urine Protein Urine Glucose (UA) Urine Ketones Urine Blood Urine Nitrite Urine Bilirubin Urine Urobilinogen Ur Leukocyte Esterase Urine WBC (Auto) Urine RBC (Auto) U Hyaline Cast (Auto) U Epithel Cells (Auto) Urine Bacteria (Auto) Ur Renal Epithelial Cell Urine Crystals Calcium Oxalate Crystal Uric Acid Crystals Triple Phos Crystals Other Crystals Amorphous Sediment Granular Casts Waxy Casts RBC Casts WBC Casts Other Casts Urine Mucus Urine Other Urine Trichomonas Urine Yeast Urine Sperm Ur Oval Fat Bodies SARS-CoV-2, RNA, NAAT (NEGATIVE) Diagnostic Findings Abdomen/Pelvis CT 11/09/21 18:[address] WITHOUT CONTRAST CT DOSE: 603.30 mGy.cm HISTORY: left flank pain, obstructing ureteral stone TECHNIQUE: Multiaxial CT images of the abdomen and pelvis were performed without contrast. A dose lowering technique was utilized adhering to the principles of ALARA. COMPARISON STUDY: Outside hospital abdomen and pelvis CT 11/04/2021. FINDINGS: Severe left coronary artery calcifications are noted. Calcified bilateral hilar lymph nodes. Trace left pleural effusion. Calcified granulomas are seen within the lung bases. Bibasilar linear densities consistent with subsegmental atelectasis. No pneumoperitoneum. No pneumatosis. Bilateral total hip arthroplasties. No fractures within the visualized osseous structures. There is 2. Vertebral body hemangioma noted. Small to moderate hiatus hernia. Tiny fat- containing left inguinal hernia. Degenerative changes within the lumbar spine. A 2 cm bilobed hypodense lesion within the left hepatic lobe. This is incompletely characterized on this noncontrast study but statistically represents a cyst. There are few punctate calcified granulomas within the spleen. The adrenal glands and pancreas unremarkable. The gallbladder is mildly distended. There appears to be a small amount of sludge within the gallbladder. Questionable gallbladder wall thickening. However, no surrounding inflammatory change identified. Mild to moderate bilateral perinephric edema, unchanged. This is likely chronic. There is a punctate stone within the right kidney. No right-s ided hydronephrosis. The bladder is not well visualized due to metallic artifact from the bilateral hip hardware. However, no definite bladder wall thickening. There is a 12 x 9 mm left UPJ stone which is unchanged in position. Moderate left hydronephrosis persists. There are few punctate stones within the left kidney. No retroperitoneal lymphadenopathy. Moderate calcified plaque within the normal caliber abdominal aorta. No definite pelvic free fluid. Suboptimal evaluation for bowel pathology due to the lack of intravenous and oral contrast. However, there is no definite bowel wall thickening or obstruction. Postoperative changes likely representing a prior ileocecectomy. 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 IMPRESSION: 1. No significant change in the 12 x 9 mm left UPJ stone resulting in moderate left hydronephrosis. 2. Stable bilateral nephrolithiasis. 3. No definite bowel wall thickening or obstruction. 4. Mildly distended gallbladder which appears to contain a small amount of sludge. There is questionable gallbladder wall thickening. However, no adjacent inflammatory change. If the patient is complaining of right upper quadrant pain then consider follow-up abdominal ultrasound for further evaluation. 5. Trace left pleural effusion. 6. Additional findings as described above. ACT 112: Negative or not required by law. Electronically signed by: Benigno Lauren M.D. 11/09/2021 6:52 PM PG Care Time/CCT Total # of Minutes Spent Total Time Spent with Patient: Total time spent is greater than 50% in coordination of care (as documented) at patient's floor/unit and/or counseling patient: Coding Level of Care Code 04028 Subseq Hosp Care Lvl 3 Diagnoses Nephrolithiasis N20.0 MIRIAM (acute kidney injury) N17.9 Abnormal LFTs R79.89 Sepsis A41.9
[2021-11-10 07:58] LABS: Basophils # (auto) 0.04 K/uL (0-0.2); Basophils % (auto) 0.3 %; Eosinophils # (auto) 0.08 K/uL (0-0.5); Eosinophils % (auto) 0.7 %; Hematocrit (blood only) 38.8 % (42-52); Hemoglobin 12.5 g/dL (14.0-18.0); Immature Granulocytes # (auto) 0.38 K/uL (0.00-0.02); Immature Granulocytes % (auto) 3.3 %; Lymphocytes # (auto) 1.53 K/uL (1.2-3.4); Lymphocytes % (auto) 13.3 %; Mean Corpuscular Hemoglobin 31.1 pg (25-34); Mean Corpuscular Hgb Conc 32.2 g/dL (32-36); Mean Corpuscular Volume 96.5 fL (80-100); Monocytes # (auto) 1.37 K/uL (0.11-0.59); Monocytes % (auto) 11.9 %; Neutrophils # (auto) 8.13 K/uL (1.4-6.5); Neutrophils % (auto) 70.5 %; Platelet Count 148 K/uL (130-400); RDW Coefficient of Variation 13.9 % (11.5-14.5); RDW Standard Deviation 49.7 fL (36.4-46.3); Red Blood Count 4.02 M/uL (4.7-6.1); White Blood Count 11.53 K/uL (4.8-10.8)
[2021-11-10 08:07] LABS: Prothrombin Time 10.3 Seconds (9.0-12.0)
--- NOTE | 2021-11-10 08:24 | Urology Consultation ---
Date of Consultation November 10, 2021 Assessment & Plan (1) Hydronephrosis due to obstruction of ureter: (2) Nephrolithiasis: (3) MIRIAM (acute kidney injury): 70yo M admitted with intractable left flank pain and MIRIAM secondary to an obstructing 12x9mm Left UPJ stone. - Plan of care reviewed with Dr. Sun. - Pt afebrile, hemodynamically stable, non-toxic appearing. - Labs reviewed - Wbc 11.53, Creatinine 2.01 - Urine and blood cultures pending. On IV Zosyn, follow cultures. - Given his intractable left flank pain and MIRIAM in the context of an obstructing left UPJ stone, will proceed with OR for cystoscopy, left ureteral stent placement. - Risks and benefits to be reviewed with patient by . OR notified. Covid test negative. Preoperative CXR and EKG ordered. Covered with scheduled Zosyn. - Keep NPO. - Continue supportive care, pain management, and antibiotic therapy. - Patient agreeable to plan, all questions were answered. - Will continue to follow. History of Present Illness Reason for Consultation: left sided stone Attending Physician: An Chisholm MD History of Present Illness The patient is a 70yo M with a past medical history of prostate cancer s/p radical prostatectomy 2012 and nephrolithiasis who presented to the ED with significant left flank pain. Approximately 5 days ago he developed left flank pain was seen at an outside emergency room had a CT scan done showing a 1 centimeter stone at the left ureteral pelvic junction. He had been doing fairly well at home, but reported an elevated temperature of 100.3 on Saturday and worsening pain, therefore contacted his PCP and was given a prescription for Cipro which he has been taking without difficulty as well as hydrocodone. He was seen in the urology office yesterday afternoon and reported a fair amount of pain with associated nausea which prompted his ED visit. On presentation, patient was afebrile, hemodynamically stable. White count 12.56, creatinine 2.15. Urinalysis with 3+ blood, negative nitrite, 2+ LE, >30WBC, 20-30Epi's, negative bacteria. Pt was given IV analgesics and antiemetics and admitted for further management. CT abdomen pelvis IMPRESSION: 1. No significant change in the 12 x 9 mm left UPJ stone resulting in moderate left hydronephrosis. 2. Stable bilateral nephrolithiasis. 3. No definite bowel wall thickening or obstruction. 4. Mildly distended gallbladder which appears to contain a small amount of sludge. There is questionable gallbladder wall thickening. However, no adjacent inflammatory change. If the patient is complaining of right upper quadrant pain then consider follow-up abdominal ultrasound for further evaluation. 5. Trace left pleural effusion. Pt examined at bedside this AM. Awake, resting in bed on arrival. No acute distress. Reports his left flank pain has improved since admission, currently rates pain 3/10. No fevers or chills. Denies nausea/vomiting at present. Has been NPO. Voiding without issue. Notes some hematuria, no dysuria. Feels he is emptying his bladder well. Pt reports a hx of stones, has previously underwent ESWL and ureteroscopy. Reports he tolerated stents well in the past. Denies pertinent family hx. No additional complaints or concerns at time of exam. Allergies Allergy/AdvReac Type Severity Reaction Status Date / Time No Known Allergies Allergy Verified 11/09/21 16:48 Home Medications Medication Instructions Recorded Confirmed Type hydrocodone 5 mg-acetaminophen 325 1 tab PO TID PRN #10 tab 11/08/21 11/09/21 Rx mg tablet ciprofloxacin HCl 500 mg tablet 500 mg PO BID 11/09/21 11/09/21 History Patient History Medical History Chronic back pain History of prostate cancer Nephrolithiasis Osteoarthritis Surgical History History of colonoscopy W/ POLYPECTOMY History of lithotripsy History of prostate biopsy History of prostatectomy History of shoulder surgery RT History of tonsillectomy History of tooth extraction History of total hip arthroplasty BL Family History Father Family history of diabetes mellitus Sister Family history of diabetes mellitus Social History Smoking Status: Never smoker Second Hand Exposure: No; Hx Alcohol Use: Yes Alcohol type: beer Hx Substance Use: No Preferred Language: Macedonian Communication Ability: Effective Studio Engineer Required: No Beliefs That Will Affect Care: None Current Living Situation: Spouse Feels Safe at Home: Yes Assistive Devices: Denture - Upper, Denture - Lower and Glasses Review of Systems Review of Systems: All systems reviewed & are unremarkable except as noted in HPI & below Physical Exam Constitutional: well developed and well nourished; no acute distress Neck: normal visual inspection Respiratory: normal respiratory effort and able to speak in complete sentences; no labored breathing and no audible wheezes Cardiovascular: Extremities: no calf tenderness Gastrointestinal (Abdomen): Inspection/Auscultation: abdomen normal to inspection; abdomen not distended Musculoskeletal: Head/Neck/Chest: normocephalic Skin: No visible rashes or lesions to exposed skin areas Neurologic: moves all extremities and awake Psychiatric: Orientation: alert, oriented x 3 and cooperative Genitourinary: Mild left flank tenderness with palpation Results & Data ([facility]) Vital Signs (Past 12 Hours) Vital Signs Temp Pulse Pulse Resp BP BP Pulse Ox 11/10/21 07:58 37.1 C 67 16 103/62 91 11/10/21 07:02 36.7 C 79 18 131/73 94 11/10/21 05:09 36.8 C 64 17 112/63 94 11/10/21 02:14 36.6 C 59 L 16 93/54 L 94 11/09/21 21:30 36.6 C 58 L 17 115/64 95 11/09/21 20:30 65 12 102/59 L 90 PG Care Time/CCT Total # of Minutes Spent Total Time Spent with Patient: Total time spent is greater than 50% in coordination of care (as documented) at patient's floor/unit and/or counseling patient: Coding Level of Care Code 58561 Initial Inpt Care Lvl 2 Diagnoses Hydronephrosis due to obstruction of ureter N13.1 Nephrolithiasis N20.0 MIRIAM (acute kidney injury) N17.9
[2021-11-10 08:27] LABS: Albumin Level 3.3 gm/dl (3.4-5.0); BUN Creatinine Ratio 19.4 (10-20); Bilirubin Direct 0.5 mg/dl (0-0.2); Bilirubin,Total 1.4 mg/dl (0.2-1.0); Calcium 8.4 mg/dl (8.5-10.1); Creatinine Clr Calc Pharmacy 34.9 ml/min; Est GFR (African American) 37.3 ml/min; Est GFR (Non-African American) 32.2 ml/min; Potassium 4.8 mmol/L (3.5-5.1)
[2021-11-10] MEDS: ACETAMINOPHEN 325 MG TAB PO PRN (08:44)
[2021-11-10] MEDS ORDERED: HYDROmorphone INJ 0.5 MG/0.5 ML SYR IV PRN (08:48)
--- NOTE | 2021-11-10 11:30 | History & Physical Bridge Note ---
Date of Service November 10, 2021 History & Physical Bridge Note I have examined the patient, reviewed the History & Physical and in the interval since the performance of the History & Physical I have noted the following changes of clinical significance: no changes noted
[2021-11-10] MEDS ORDERED: ePHEDrine sulfate 50 MG/ML AMP IV PRN (11:34)
[2021-11-10] MEDS ORDERED: ONDANSETRON INJ 2 MG/ML 2 ML VIAL IV PRN (11:34)
[2021-11-10] MEDS ORDERED: fentaNYL citrate 100 MCG/2 ML VIAL IV PRN (11:34)
[2021-11-10] MEDS ORDERED: HYDROmorphone INJ 2 MG/ML SYR/VIAL IV PRN (11:34)
[2021-11-10] MEDS ORDERED: ATROPINE SULFATE 0.1 MG/ML 10ML SYR IV PRN (11:34)
--- NOTE | 2021-11-10 11:34 | Anesthesiology Consultation ---
Date of Service November 10, 2021 Assessment & Plan ASA ASA2 Proposed Anesthesia Anesthesia Type: General Risk / Benefits Reviewed With: PT / POA / Parent / Guardian, Accepts Plan and Informed Consent Obtained History Surgery Operation Date: 11/10/21 10:30 Proposed Procedures p Cystoscopy Retrograde Pyelogram, Left Stent Placement - Johny Sun MD Height/Weight Height: 5 ft 8 in Weight: 82.9 kg Allergies Allergy/AdvReac Type Severity Reaction Status Date / Time No Known Allergies Allergy Verified 11/09/21 16:48 Medications Home Medications Medication Instructions Recorded Confirmed Last Taken hydrocodone 5 mg-acetaminophen 325 1 tab PO TID PRN #10 tab 11/08/21 11/09/21 11/09/21 mg tablet ciprofloxacin HCl 500 mg tablet 500 mg PO BID 11/09/21 11/09/21 11/09/21 Active Medications Generic Name Dose Route Start Last Admin Trade Name Freq PRN Reason Stop Dose Admin Acetaminophen 650 mg 11/09/21 21:30 11/10/21 08:44 Acetaminophen 325 Mg Tab PO 12/09/21 21:29 650 mg Q4H PRN Administration pain/fever Lactated Ringer's 1,000 mls @ 125 mls/hr 11/09/21 21:30 11/10/21 05:06 Lr IV 11/10/21 13:29 125 mls/hr .Q8H SARA Administration Piperacillin Sod/Tazobactam 115 mls @ 28.75 mls/hr 11/10/21 01:00 11/10/21 08:45 Sod 3.375 gm/ Dextrose IV 11/20/21 00:59 28.8 mls/hr Q8H SARA Administration Protocol NPO Date Last Intake of Fluids: 11/10/21 Time Last Intake of Fluids: 08:30 Date Last Intake of Solids: 11/09/21 Time Last Intake of Solids: 17:00 Past Medical History Medical History Chronic back pain History of prostate cancer Nephrolithiasis Osteoarthritis Exercise / Class Metabolic Activity II 4-5 Yardwork/Stairs/Walk up hill Past Family History Family History Father Family history of diabetes mellitus Sister Family history of diabetes mellitus Past Surgical History Surgical History History of colonoscopy W/ POLYPECTOMY History of lithotripsy History of prostate biopsy History of prostatectomy History of shoulder surgery RT History of tonsillectomy History of tooth extraction History of total hip arthroplasty BL Past Anesthesia History No Hx of Anesthesia Complications and No Family Hx of Anesthesia Complications History of PONV No Hx of PONV and No Hx of Motion Sickness Social History Smoking Status: Never smoker Hx Alcohol Use: Yes Alcohol type: beer alcohol intake frequency: a few times a month Hx Substance Use: No substance use type: does not use Review of Systems denies fever/cough/ colds/ chest pain/ SOB/ EL denies EL Physical Exam Vital Signs Last Vital Signs Temp 37.1 C 11/10/21 10:27 Pulse 59 L 11/10/21 10:27 Resp 16 11/10/21 10:27 BP 115/66 11/10/21 10:27 Pulse Ox 91 11/10/21 10:27 ENMT Mouth: no TMJ abnormality and no dentition abnormality Thyromental Distance: > or= 3.5 Finger Breadths Mallampati Class: II Neck neck extension not limited Respiratory normal respiratory effort; no respiratory distress Auscultation: lungs clear to auscultation bilaterally Cardiovascular Rate/Rhythm: regular rate and regular rhythm Neurologic moves all extremities Psychiatric Orientation: alert and oriented x 3 Testing Laboratory Results 11/10/21 07:34 11/10/21 07:34 PT 10.3 Seconds (9.0-12.0) 11/10/21 07:34 INR 1.0 (0.9-1.1) 11/10/21 07:34 Urine Color Dark Yellow 11/09/21 19:18 Urine Appearance Cloudy (Clear) A 11/09/21 19:18 Urine pH 5.0 (4.5-7.5) 11/09/21 19:18 Ur Specific [place] 1.022 (1.000-1.030) 11/09/21 19:18 Urine Protein 1+ (Negative) H 11/09/21 19:18 Urine Glucose (UA) Negative (Negative) 11/09/21 19:18 Urine Ketones Negative (Negative) 11/09/21 19:18 Urine Nitrite Negative (Negative) 11/09/21 19:18 Ur Leukocyte Esterase 2+ (Negative) H 11/09/21 19:18 Urine WBC (Auto) >30 /hpf (0-5) H 11/09/21 19:18 Urine RBC (Auto) 0-4 /hpf (0-4) 11/09/21 19:18 U Hyaline Cast (Auto) 1-5 /lpf (0-5) 11/09/21 19:18 U Epithel Cells (Auto) 20-30 /lpf (0-5) H 11/09/21 19:18 Urine Bacteria (Auto) Negative (Negative) 11/09/21 19:18
[2021-11-10] MEDS ORDERED: PROPOFOL IV EMULSION 10 MG/ML 20 ML VIAL IV ONE (11:47)
[2021-11-10] MEDS ORDERED: fentaNYL citrate 100 MCG/2 ML VIAL ONE (11:47)
[2021-11-10] MEDS ORDERED: LIDOCAINE 2% 2 ML VIAL/AMP(20MG/ML) INFIL ONE (11:47)
[2021-11-10] MEDS ORDERED: MIDAZOLAM HCL 1 MG/ML 2ML VIAL ONE (11:47)
[2021-11-10] MEDS ORDERED: ePHEDrine sulfate 50 MG/ML AMP ONE (12:10)
[2021-11-10] MEDS ORDERED: ONDANSETRON INJ 2 MG/ML 2 ML VIAL ONE (12:21)
--- NOTE | 2021-11-10 12:25 | Operative Report ---
PG Post Operative Report Pre & Post Diagnosis Operation Date: 11/10/21 10:30 Pre-Op Diagnosis: Left sided nephrolithiasis with urinary tract infection Post-Op Diagnosis: Left sided nephrolithiasis with urinary tract infection I identified the patient and participated in the time-out.: Yes Procedure Operation Date: 11/10/21 10:30 Actual Procedures p Cystoscopy Retrograde Pyelogram, Left Stent Placement(Left) - Johny Sun MD Surgeon Royal Sun MD Referral Nurse none Estimated Blood Loss 0 Findings Consistent with Post-Op Diagnosis Specimens none Description of Procedure The patient was identified in the preoperative holding area, appropriate informed consents were reviewed and completed and the patient was transferred to the operative suite. Upon arrival, appropriate antibiotics and anesthesia were administered and the patient was placed in dorsal lithotomy position and prepped and draped in sterile fashion. To begin the case a 22 [place] cystoscope was passed per urethra. He does not have a prostate any longer, however he had an open bladder neck and a healthy- appearing bladder. Inspection revealed some tiny stone debris within the bladder and ureteral orifices to be in orthotopic position. Turned attention the left UO and cannulated with a sensor wire which advanced the kidney without difficulty. I could see an opacity along the course of the ureter and I suspect I pushed this retrograde into the kidney while I was advancing the stent. There was a good curl in the proximal and distal aspects of the stentit is a 6 [place]onian by 26 cm stent. There was good drainage through the stent at the conclusion of the case. I attest to the content of the Intraoperative Record and any orders documented therein. Any exceptions are noted below.
--- NOTE | 2021-11-10 12:51 | Fluoroscopy Report ---
FL KUB CLINICAL HISTORY: LT STENT COMPARISON STUDY: CT of the abdomen and pelvis November 09, 2021. FLUOROSCOPY TIME: 4 seconds. FLUOROSCOPIC IMAGES: 2 FINDINGS: Fluoroscopy was provided during left ureteral stent placement. Stent appears appropriately positioned. Left hip arthroplasty is incidentally noted. A hyperdensity projects over the left renal sinus. IMPRESSION: Fluoroscopy provided during left ureteral stent placement. ACT 112: Negative or not required by law. Electronically signed by: Freddie Alex M.D. 11/10/2021 12:50 PM
--- NOTE | 2021-11-10 13:21 | Anesthesiology Progress Note ---
Date of Service November 10, 2021 Anesthesia Post Procedure Vital Signs Vital Signs: Temp Pulse Pulse Pulse Resp BP BP 11/10/21 13:05 36.7 C 62 18 146/68 H 11/10/21 12:55 63 18 152/71 H 11/10/21 12:45 66 17 158/70 H 11/10/21 12:35 36 C L 67 17 163/75 H 11/10/21 10:27 37.1 C 59 L 16 115/66 11/10/21 07:58 37.1 C 67 16 103/62 11/10/21 07:02 36.7 C 79 18 131/73 11/10/21 05:09 36.8 C 64 17 112/63 11/10/21 02:14 36.6 C 59 L 16 93/54 L 11/09/21 21:30 36.6 C 58 L 17 115/64 11/09/21 20:30 65 12 102/59 L 11/09/21 20:00 65 15 109/61 11/09/21 19:30 65 13 115/65 11/09/21 18:52 11/09/21 16:34 36.5 C 96 H 18 119/84 Pulse Ox 11/10/21 13:05 93 11/10/21 12:55 98 11/10/21 12:45 97 11/10/21 12:35 97 11/10/21 10:27 91 11/10/21 07:58 91 11/10/21 07:02 94 11/10/21 05:09 94 11/10/21 02:14 94 11/09/21 21:30 95 11/09/21 20:30 90 11/09/21 20:00 90 11/09/21 19:30 91 11/09/21 18:52 94 11/09/21 16:34 94 Pain Intensity Left Flank: Pain Intensity: 4 Transfer of Care Handoff Completed per policy Notes Mental Status: alert / awake / arousable and participated in evaluation Patient Amnestic to Procedure: Yes Nausea / Vomiting: adequately controlled Pain: adequately controlled Airway Patency, RR, SpO2: stable & adequate BP & HR: stable & adequate Hydration State: stable & adequate Anesthetic Complications: no major complications apparent and Pt Satisfied with anesthetic care
[2021-11-10] MEDS: POLYETHYLENE (MIRALAX) 17 GM PACK PO SCH ×2 (15:19→22:06)
[2021-11-10] MEDS: TAMSULOSIN HCL 0.4 MG CAP PO SCH (22:05)
--- NOTE | 2021-11-10 22:05 | Ultrasound Report ---
ULTRASOUND RIGHT UPPER QUADRANT ABDOMEN CLINICAL HISTORY: Elevated hepatic transaminases. Gallbladder wall thickening seen by CT. COMPARISON STUDY: Abdominal CT dated 11/09/2021 TECHNIQUE: Real-time, grayscale, and color flow sonography of the right upper quadrant of the abdomen was performed. Images are reviewed in the transverse and longitudinal planes. FINDINGS: Liver: The liver is normal in size and echotexture. There is no intrahepatic biliary ductal dilatatio n. The main portal vein is patent. Small hepatic cysts measure up to 9 mm. Gallbladder: Biliary sludge is noted. The gallbladder is distended measuring up to 10 cm in length. N o shadowing gallstones are identified. The gallbladder wall is top normal in thickness. No pericholec ystic fluid is seen. A sonographic Arizmendi's sign is reportedly absent. The common bile duct measures up to 0.3 cm in diameter. Pancreas: Visualized portions of the pancreatic head and body are normal in appearance. The splenic v ein is patent. Right kidney: Survey images of the right kidney demonstrate mild cortical atrophy. Echotexture is nor mal. There is no hydronephrosis. Ascites: None. IMPRESSION: 1. Distended gallbladder with biliary sludge. No shadowing gallstones are identified and there is no definitive sonographic evidence of acute cholecystitis. If there is strong clinical concern for acute cholecystitis a nuclear hepatobiliary scan should be considered. 2. There is no intra or extrahepatic biliary ductal dilatation. ACT 112: Negative or not required by law. Electronically signed by: Alan Johnston M.D. 11/10/2021 10:03 PM
[2021-11-11] MEDS: PIPERACILLIN/TAZOBACTAM 3.375 GM in DEXTROSE 5% 100 ML IV SCH ×3 (01:05→17:04)
[2021-11-11] MEDS: SODIUM CHLORIDE 0.9% 1000ML 1,000 ML IV SCH ×2 (06:40→22:06)
--- NOTE | 2021-11-11 07:25 | Hospitalist Progress Note ---
Date of Service November 11, 2021 Assessment & Plan (1) Sepsis: Plan: Leukocytosis, tachycardia, +UA, procal 9, MIRIAM with Cr 2.15 with normal baseline (1.1 earlier this week at [facility], WBC was 14k, sent with PO opiates but no abx until PCP sent Cipro after temp 100.3 Saturday). Lactic wnl at 0.8 likely 2nd to obstructing stone, 12x9mm at L UVJ with moderate hydronephrosis urology on consult p Cystoscopy Retrograde Pyelogram, Left Stent Placement(Left) - Johny Sun MD Remains on Zosyn (day 2) Urine cx no growth, FINAL. --> However, patient did take ~6 tablets cipro prior to admission BCx NGTD after 24 hours, monitor Also obtained RUQ US, Anaplasmosis given elevated LFT/low plt and thickening onCTAP -- Negative Anaplasmosis smear, US GB negative but does note GB wall thickening --> rec general surgery f/u dc -- Continues w/o RUQ pain on exam. LFTs improving with exception ALP 229 Procal 9 --> 3.5 Cr 1.83 from 2.01 (did get Toradol IV in ER, avoid further NSAIDs). Baseline Cr ~1 Will order additional IVF @80cc/hr and encouraging PO intake Continue flomax HS Monitoring overnight to ensure Cr/LFTs continuing to improve and blood cultures negative (2) Nephrolithiasis: Plan: as above, and will need outpt urology follow up (3) MIRIAM (acute kidney injury): Plan: BUN=42, Cr=2.15 from normal baseline in 2019. suspected 2nd to combination pre/post renal given dehydration (not much PO x 5 days [employer]) and obstructing stone Cr improving, IVF as outlined Avoid NSAIDs, renal dose meds s/p cysto as above and monitor BMP IN AM (4) Abnormal LFTs: Plan: Etiology unclear. Patient has no RUQ tenderness, Negative Arizmendi's. CTAP on admission with sludge/wall thickening but no stone. RUQ without acute milton LFTs improving but still elevated and will monitor in AM Anaplasmosis smear negative Rec referral to general surgery at d/c for discussion for elective cholecystectomy in the future (5) Shortness of breath: Plan: reported when up/ambulating but admitted probably from deconditioning from not eating/drinking prior to admission and just now getting up and moving around CXR with atelectasis stable on room air afebrile Encouraged use of incentive spirometer Decreased IVF to 70cc/hr and encouraging increased PO intake Plan: hopeful for discharge tomorrow Admission and Anticipated Discharge Date Admission Date: November 09, 2021 Supervising Physician Co-Signing Physician Notes PA Supervision Note: I did not personally see or examine the patient today, but I verified all [place] points of GEOVANNA Wakefield's assessment and plan with the following exceptions/additions: None Subjective Patient evaluated this morning. Doing better. Eating/drinking. First real food since last Saturday. Now passing gas. Still WITHOUT RUQ pain, and L flank pain improved. States urine carry in worker in color. Denies fever/chills, chest pain. Occasional shortness of breath/feeling winded getting back from the bathroom. No cough/sputum production. Encouraging PO intake to prevent volume overload. No LE edema noted. Encouraging incentive spirometer. No issues voiding since procedure. not yet seen by Urology. He was hopeful for d/c, but discussed would like to monitor blood cultures/improvement in Cr/LFTs and if continued improvement in AM can possibly discharge by noon. 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 Of note, he does mention possible issue with lactose intolerance, will change diet to reflect. Questions/concerns addressed at this time. Review of Systems Review of Systems: All systems reviewed & are unremarkable except as noted in HPI & below Physical Exam Physical Exam: General: WN/WD male, resting comfortably in bed, NAD HEENT: head normocephalic, atraumatic, pupils equal and reactive to light, mm slightly dry (improved), trachea midline, no deviation Resp: CTAB, no w/c/r, on room air CV: RRR, no m/r/g, no edema, pulses palpable GI: increased BS, soft, no tenderness L flank, - CVA, no guarding/rebound : no borja MSK/Neuro: moves all extremities, no focal deficits, answering questions appropriately, not confused, no slurred speech/facial droop Psych: AOX3, cooperative Results & Data Results & Data ([facility]) Vital Signs (Past 12 Hours) Vital Signs Temp Pulse Resp BP Pulse Ox 11/11/21 03:18 37.1 C 75 18 130/65 95 11/10/21 22:43 37.3 C 74 18 129/72 95 11/10/21 20:49 37.3 C 72 20 134/77 97 11/10/21 20:00 37.1 C 73 18 113/67 92 Laboratory Results 11/11/21 11/11/21 11/11/21 Range/Units 07:53 07:53 07:53 WBC 10.54 (4.8-10.8) K/uL RBC 3.77 L (4.7-6.1) M/uL Hgb 11.8 L (14.0-18.0) g/dL Hct 36.2 L (42-52) % MCV 96.0 (80-100) fL MCH 31.3 (25-34) pg MCHC 32.6 (32-36) g/dL RDW Std Deviation 48.4 H (36.4-46.3) fL RDW Coeff of Mateo 13.8 (11.5-14.5) % Plt Count 156 (130-400) K/uL MPV 9.5 (7.4-10.4) fL Immature Gran % (Auto) 6.4 % Neut % (Auto) 63.1 % Lymph % (Auto) 15.7 % [place] % (Auto) 12.9 % Eos % (Auto) 0.8 % Baso % (Auto) 1.1 % Neut # (Auto) 6.65 H (1.4-6.5) K/uL Lymph # (Auto) 1.66 (1.2-3.4) K/uL [place] # (Auto) 1.36 H (0.11-0.59) K/uL Eos # (Auto) 0.08 (0-0.5) K/uL Baso # (Auto) 0.12 (0-0.2) K/uL Immature Gran # (Auto) 0.67 H (0.00-0.02) K/uL Sodium 138 (136-145) mmol/L Potassium 5.0 (3.5-5.1) mmol/L Chloride 107 (98-107) mmol/L Carbon Dioxide 26 (21-32) mmol/L Anion Gap 5 (3-11) BUN 26 H (6-23) mg/dl Creatinine 1.83 H (0.6-1.4) mg/dl Est Cr Clr Drug Dosing 38.3 ml/min Est GFR ( Amer) 41.8 ml/min Est GFR (Non-Af Amer) 36.1 ml/min BUN/Creatinine Ratio 14.2 (10-20) Glucose 101 H (70-99(Fasting)) mg/dl Calcium 8.2 L (8.5-10.1) mg/dl Total Bilirubin 1.1 H (0.2-1.0) mg/dl Direct Bilirubin 0.4 H (0-0.2) mg/dl AST 46 H (13-39) U/L ALT 55 H (7-52) U/L Alkaline Phosphatase 229 H (34-104) U/L Total Protein 5.6 L (6.0-8.3) gm/dl Albumin 3.1 L (3.4-5.0) gm/dl Procalcitonin 3.50 H (0-0.5) ng/ml Diagnostic Findings Abdomen Fluoroscopy 11/10/21 00:00 FL KUB CLINICAL HISTORY: LT STENT COMPARISON STUDY: CT of the abdomen and pelvis November 09, 2021. FLUOROSCOPY TIME: 4 seconds. FLUOROSCOPIC IMAGES: 2 FINDINGS: Fluoroscopy was provided during left ureteral stent placement. Stent appears appropriately positioned. Left hip arthroplasty is incidentally noted. A hyperdensity projects over the left renal sinus. IMPRESSION: Fluoroscopy provided during left ureteral stent placement. ACT 112: Negative or not required by law. Electronically signed by: Freddie Alex M.D. 11/10/2021 12:50 PM Liver Ultrasound 11/10/21 08:45 ULTRASOUND RIGHT UPPER QUADRANT ABDOMEN CLINICAL HISTORY: Elevated hepatic transaminases. Gallbladder wall thickening seen by CT. COMPARISON STUDY: Abdominal CT dated 11/09/2021 TECHNIQUE: Real-time, grayscale, and color flow sonography of the right upper quadrant of the abdomen was performed. Images are reviewed in the transverse and longitudinal planes. FINDINGS: Liver: The liver is normal in size and echotexture. There is no intrahepatic biliary ductal dilatation. The main portal vein is patent. Small hepatic cysts measure up to 9 mm. Gallbladder: Biliary sludge is noted. The gallbladder is distended measuring up to 10 cm in length. No shadowing gallstones are identified. The gallbladder wall is top normal in thickness. No pericholecystic fluid is seen. A sonographic Arizmendi's sign is reportedly absent. The common bile duct measures up to 0.3 cm in diameter. Pancreas: Visualized portions of the pancreatic head and body are normal in appearance. The splenic vein is patent. Right kidney: Survey images of the right kidney demonstrate mild cortical atrophy. Echotexture is normal. There is no hydronephrosis. Ascites: None. IMPRESSION: 1. Distended gallbladder with biliary sludge. No shadowing gallstones are identified and there is no definitive sonographic evidence of acute cholecystitis. If there is strong clinical concern for acute cholecystitis a nuclear hepatobiliary scan should be considered. 2. There is no intra or extrahepatic biliary ductal dilatation. ACT 112: Negative or not required by law. Electronically signed by: Alan Johnston M.D. 11/10/2021 10:03 PM PG Care Time/CCT Total # of Minutes Spent Total Time Spent with Patient: Total time spent is greater than 50% in coordination of care (as documented) at patient's floor/unit and/or counseling patient: Coding Level of Care Code 17817 Subseq Hosp Care Lvl 2 Diagnoses Sepsis A41.9 Nephrolithiasis N20.0 MIIRAM (acute kidney injury) N17.9 Abnormal LFTs R79.89 Shortness of breath R06.02
[2021-11-11] MEDS: POLYETHYLENE (MIRALAX) 17 GM PACK PO SCH ×2 (08:00→20:04)
[2021-11-11 08:05] LABS: Hematocrit (blood only) 36.2 % (42-52); Hemoglobin 11.8 g/dL (14.0-18.0); Mean Corpuscular Hemoglobin 31.3 pg (25-34); Mean Corpuscular Hgb Conc 32.6 g/dL (32-36); Mean Platelet Volume 9.5 fL (7.4-10.4); Platelet Count 156 K/uL (130-400); RDW Coefficient of Variation 13.8 % (11.5-14.5); RDW Standard Deviation 48.4 fL (36.4-46.3); Red Blood Count 3.77 M/uL (4.7-6.1); White Blood Count 10.54 K/uL (4.8-10.8)
[2021-11-11 08:29] LABS: Albumin Level 3.1 gm/dl (3.4-5.0); BUN Creatinine Ratio 14.2 (10-20); Bilirubin Direct 0.4 mg/dl (0-0.2); Bilirubin,Total 1.1 mg/dl (0.2-1.0); Calcium 8.2 mg/dl (8.5-10.1); Creatinine Clr Calc Pharmacy 38.3 ml/min; Est GFR (African American) 41.8 ml/min; Est GFR (Non-African American) 36.1 ml/min; Total Protein 5.6 gm/dl (6.0-8.3)
[2021-11-11 08:42] LABS: Basophils # (auto) 0.12 K/uL (0-0.2); Basophils % (auto) 1.1 %; Eosinophils # (auto) 0.08 K/uL (0-0.5); Eosinophils % (auto) 0.8 %; Immature Granulocytes # (auto) 0.67 K/uL (0.00-0.02); Immature Granulocytes % (auto) 6.4 %; Lymphocytes # (auto) 1.66 K/uL (1.2-3.4); Lymphocytes % (auto) 15.7 %; Monocytes # (auto) 1.36 K/uL (0.11-0.59); Monocytes % (auto) 12.9 %; Neutrophils # (auto) 6.65 K/uL (1.4-6.5); Neutrophils % (auto) 63.1 %
--- NOTE | 2021-11-11 12:02 | XRay Report ---
XR chest 1V portable HISTORY: Shortness of breath. COMPARISON: Chest 10/27/2018. FINDINGS: No pneumothorax. No pleural effusions. There are few bibasilar linear densities suggesting subsegmental atelectasis or scarring. These have slightly progressed. The heart is normal in size. Th ere is a mildly tortuous thoracic aorta, unchanged. Stable punctate calcified granuloma within the ri ght upper lobe. IMPRESSION: Slight progression of the bibasilar linear densities suggesting subsegmental atelectasis or scarring. Otherwise, no acute process within the chest. ACT 112: Negative or not required by law. Electronically signed by: Benigno Lauren M.D. 11/11/2021 12:01 PM
--- NOTE | 2021-11-11 12:51 | Electrocardiogram Report ---
Test Reason : Blood Pressure : / mmHG Vent. Rate : 062 BPM Atrial Rate : 062 BPM P-R Int : 178 ms QRS Dur : 096 ms QT Int : 390 ms P-R-T Axes : 041 013 010 degrees QTc Int : 395 ms Normal sinus rhythm Normal ECG When compared with ECG of 27-OCT-2018 12:25, No significant change was found Confirmed by Eugene Mak ([id number]) on 11/11/2021 12:51:00 PM Referred By: Helena Pederson Confirmed By:Eugene Mak
[2021-11-11] MEDS: ACETAMINOPHEN 325 MG TAB PO PRN (20:02)
[2021-11-11] MEDS: TAMSULOSIN HCL 0.4 MG CAP PO SCH (20:03)
[2021-11-12] MEDS: PIPERACILLIN/TAZOBACTAM 3.375 GM in DEXTROSE 5% 100 ML IV SCH ×3 (01:16→17:37)
[2021-11-12 08:13] LABS: Albumin Level 3.4 gm/dl (3.4-5.0); BUN Creatinine Ratio 14.6 (10-20); Bilirubin Direct 0.3 mg/dl (0-0.2); Bilirubin,Total 1.1 mg/dl (0.2-1.0); Calcium 8.4 mg/dl (8.5-10.1); Creatinine Clr Calc Pharmacy 42.7 ml/min; Est GFR (African American) 47.7 ml/min; Est GFR (Non-African American) 41.2 ml/min; Potassium 4.6 mmol/L (3.5-5.1); Total Protein 6.2 gm/dl (6.0-8.3)
[2021-11-12] MEDS: POLYETHYLENE (MIRALAX) 17 GM PACK PO SCH (09:09)
--- NOTE | 2021-11-12 09:46 | Hospitalist Progress Note ---
Date of Service November 12, 2021 Assessment & Plan (1) Sepsis: Plan: Leukocytosis, tachycardia, +UA, procal 9, MIRIAM with Cr 2.15 with normal baseline (1.1 earlier this week at [facility], WBC was 14k, sent with PO opiates but no abx until PCP sent Cipro after temp 100.3 Saturday). Lactic wnl at 0.8 likely 2nd to obstructing stone, 12x9mm at L UVJ with moderate hydronephrosis urology on consult p Cystoscopy Retrograde Pyelogram, Left Stent Placement(Left) - Royal Sun MD Remains on Zosyn (day 3) Urine cx no growth, FINAL. --> However, patient did take ~6 tablets cipro prior to admission and consideration for total 5 days post-stent to complete treatment however will continue ZOsyn for now (see below) Continue flomax Will need outpatient follow up for lithotripsy for definitive stone treatment. Procal 9 --> 3.5 WBC 10.3k but neutrophils elevated compared to day prior along with LFTs * --> Prior RUQ with sludge and wall thickening but no stone/evidence for acute milton * -- discussed with general surgery and will alert if imaging abnormal/formal consultation * ordered MRCP for further eval elevated LFTs and reported n/abd pain overnight after dinner BCx NGTD remain negative Anaplasmosis negative Cr continues to improve, currently 1.64 and BUN 24, continue gentle IVF for now, encourage oral fluid intake NPO after midnight for MRCP Monitor labs in AM (2) Nephrolithiasis: Plan: as above, and will need outpt urology follow up for definitive tx with lithotripsy (3) MIRIAM (acute kidney injury): Plan: Improving Avoid nephrotoxic agents, renally dose medications initially 2nd to obstructing stone along with dehydration Cr improving, continuing gentle IVF for now, BUN 24/Cr 1.6 BMP in AM (4) Abnormal LFTs: Plan: Etiology unclear. Patient had no RUQ tenderness, Negative Arizmendi's. CTAP on admission with sludge/wall thickening but no stone. RUQ without acute milton LFTs improved and then with advancement of diet with abd discomfort/nausea stable but elevated today: TB 1.1, direct 0.3(0.4 prior), AST 46-->50, ALT 55-->65, ALP 229--239 --> As above, checking MRCP, official consult for general surgery if abnormal Anaplasmosis negative Monitor LFT in AM (5) Shortness of breath: Plan: reported / when up/ambulating but admitted probably from deconditioning from not eating/drinking prior to admission and just now getting up and moving around CXR with atelectasis stable on room air afebrile No SOB reported today, 93% on RA Continue to encourage use of incentive spirometer Plan: MRCP, NPO after midnight If Cr improving/MRCP negative and LFTs improved in AM without fever/leukocytosis or worsening symptoms could potentially discharge tomorrow Admission and Anticipated Discharge Date Admission Date: November 09, 2021 Subjective Patient evaluated this morning. Did have episode of abdominal discomforts yesterday after dinner. Discussed elevated LFTs. No RUQ pain reported, he noted this to be more generalized. 2BMs. He has been eating breakfast ok without recurrence but discussed possible GB disease and would like to check HIDA vs MRCP and consult surgery if needed. If imaging negative and no sx and LFTs improved in AM could potentially discharge. No fever, but did feel flushed. No CP/SOB reported. 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 Questions/concerns addressed. Updated on cell phone today [phone]. THey do inquire about timing for lithotripsy. Stated can f/u tomorrow with Urology but they are to call for appointment. Review of Systems Review of Systems: All systems reviewed & are unremarkable except as noted in HPI & below Physical Exam Physical Exam: General: WN/WD male, resting comfortably in bed, NAD HEENT: head normocephalic, atraumatic, pupils equal and reactive to light, mm slightly dry (continued improvement), trachea midline, no deviation Resp: CTAB,decreased in bases, no w/c/r, on room air CV: RRR, no m/r/g, no edema, pulses palpable GI: increased BS, soft, mild generalized tenderness reported, no tenderness L flank, - CVA, no guarding/rebound : no borja MSK/Neuro: moves all extremities, no focal deficits, answering questions appropriately, not confused, no slurred speech/facial droop Psych: AOX3, cooperative Results & Data Results & Data ([facility]) Vital Signs (Past 12 Hours) Vital Signs Temp Pulse Resp BP Pulse Ox 11/12/21 07:40 36.6 C 58 L 18 131/79 93 11/12/21 03:14 36.4 C L 75 18 120/65 95 11/11/21 22:55 36.6 C 53 L 18 136/80 94 Laboratory Results 11/12/21 11/12/21 Range/Units 10: 07:32 WBC 10.33 (4.8-10.8) K/uL RBC 3.79 L (4.7-6.1) M/uL Hgb 12.0 L (14.0-18.0) g/dL Hct 36.3 L (42-52) % MCV 95.8 (80-100) fL MCH 31.7 (25-34) pg MCHC 33.1 (32-36) g/dL RDW Std Deviation 46.7 H (36.4-46.3) fL RDW Coeff of Mateo 13.4 (11.5-14.5) % Plt Count 204 (130-400) K/uL MPV 9.2 (7.4-10.4) fL Immature Gran % (Auto) 4.8 % Neut % (Auto) 70.1 % Lymph % (Auto) 14.6 % [place] % (Auto) 9.4 % Eos % (Auto) 0.8 % Baso % (Auto) 0.3 % Neut # (Auto) 7.24 H (1.4-6.5) K/uL Lymph # (Auto) 1.51 (1.2-3.4) K/uL [place] # (Auto) 0.97 H (0.11-0.59) K/uL Eos # (Auto) 0.08 (0-0.5) K/uL Baso # (Auto) 0.03 (0-0.2) K/uL Immature Gran # (Auto) 0.50 H (0.00-0.02) K/uL Sodium 139 (136-145) mmol/L Potassium 4.6 (3.5-5.1) mmol/L Chloride 109 H (98-107) mmol/L Carbon Dioxide 21 (21-32) mmol/L Anion Gap 9 (3-11) BUN 24 H (6-23) mg/dl Creatinine 1.64 H (0.6-1.4) mg/dl Est Cr Clr Drug Dosing 42.7 ml/min Est GFR ( Amer) 47.7 ml/min Est GFR (Non-Af Amer) 41.2 ml/min BUN/Creatinine Ratio 14.6 (10-20) Glucose 101 H (70-99(Fasting)) mg/dl Calcium 8.4 L (8.5-10.1) mg/dl Magnesium 2.0 (1.7-2.4) mg/dl Total Bilirubin 1.1 H (0.2-1.0) mg/dl Direct Bilirubin 0.3 H (0-0.2) mg/dl AST 50 H (13-39) U/L ALT 65 H (7-52) U/L Alkaline Phosphatase 239 H (34-104) U/L Total Protein 6.2 (6.0-8.3) gm/dl Albumin 3.4 (3.4-5.0) gm/dl Diagnostic Findings Chest X-Ray 11/11/21 11:07 XR chest 1V portable HISTORY: Shortness of breath. COMPARISON: Chest 10/27/2018. FINDINGS: No pneumothorax. No pleural effusions. There are few bibasilar linear densities suggesting subsegmental atelectasis or scarring. These have slightly progressed. The heart is normal in size. There is a mildly tortuous thoracic aorta, unchanged. Stable punctate calcified granuloma within the right upper lobe. IMPRESSION: Slight progression of the bibasilar linear densities suggesting subsegmental atelectasis or scarring. Otherwise, no acute process within the chest. ACT 112: Negative or not required by law. Electronically signed by: Benigno Lauren M.D. 11/11/2021 12:01 PM PG Care Time/CCT Total # of Minutes Spent Total Time Spent with Patient: Total time spent is greater than 50% in coordination of care (as documented) at patient's floor/unit and/or counseling patient: Coding Level of Care Code 66929 Subseq Hosp Care Lvl 3 Diagnoses Sepsis A41.9 Nephrolithiasis N20.0 MIRIAM (acute kidney injury) N17.9 Abnormal LFTs R79.89 Shortness of breath R06.02
[2021-11-12 10:33] LABS: Basophils # (auto) 0.03 K/uL (0-0.2); Basophils % (auto) 0.3 %; Eosinophils # (auto) 0.08 K/uL (0-0.5); Eosinophils % (auto) 0.8 %; Hematocrit (blood only) 36.3 % (42-52); Immature Granulocytes % (auto) 4.8 %; Lymphocytes # (auto) 1.51 K/uL (1.2-3.4); Lymphocytes % (auto) 14.6 %; Mean Corpuscular Hemoglobin 31.7 pg (25-34); Mean Corpuscular Hgb Conc 33.1 g/dL (32-36); Mean Corpuscular Volume 95.8 fL (80-100); Mean Platelet Volume 9.2 fL (7.4-10.4); Monocytes # (auto) 0.97 K/uL (0.11-0.59); Monocytes % (auto) 9.4 %; Neutrophils # (auto) 7.24 K/uL (1.4-6.5); Neutrophils % (auto) 70.1 %; Platelet Count 204 K/uL (130-400); RDW Coefficient of Variation 13.4 % (11.5-14.5); RDW Standard Deviation 46.7 fL (36.4-46.3); Red Blood Count 3.79 M/uL (4.7-6.1); White Blood Count 10.33 K/uL (4.8-10.8)
[2021-11-12] MEDS: SODIUM CHLORIDE 0.9% 1000ML 1,000 ML IV SCH (10:59)
--- NOTE | 2021-11-12 13:45 | Magnetic Resonance Report ---
MRCP CLINICAL HISTORY: Elevated hepatic transaminases. Generalized abdominal pain. COMPARISON STUDY: Abdominal CT dated 11/09/2021. Abdominal ultrasound dated 11/10/2021. TECHNIQUE: Abdominal MRCP is performed utilizing various T1 and T2-weighted sequences in the axial an d coronal planes. IV contrast was not administered for this examination. 3-D reformats are created an d assessed. The examination is modestly degraded by motion artifact. FINDINGS: The gallbladder is distended and there is prominence of the gallbladder wall. No gallstones are ident ified. There is no intra or extrahepatic biliary ductal dilatation. The common bile duct measures up to 3 mm in diameter. No intraluminal filling defects are identified to suggest choledocholithiasis. T he pancreatic duct is normal in caliber. Cysts in the left hepatic lobe measure up to 15 mm. The unenhanced liver is otherwise grossly unremar kable. The unenhanced spleen, adrenal glands, and pancreas are grossly normal. The kidneys demonstrat e mild cortical atrophy. A left ureteral stent is in place. There is a large left-sided extrarenal pe lvis which contains a 10 mm calculus. A 2.5 cm exophytic cyst arises from the left kidney. There is n o abdominal ascites. The abdominal aorta is normal in caliber. There is no bowel obstruction. A trace left pleural effusion persists. The heart is enlarged noting a small pericardial effusion. A moderat e hiatal hernia is observed. There is no evidence of destructive bone lesion. Small metallic foreign bodies are present within the ventral abdominal wall. IMPRESSION: 1. Distended gallbladder with prominence of the gallbladder wall. There are no gallstones or MRI evid ence of acute cholecystitis. If there is strong clinical concern for acute cholecystitis a nuclear patobiliary scan should be considered. 2. There is no intra or extrahepatic biliary ductal dilatation or evidence of choledocholithiasis. 3. A left ureteral stent is in place. There is no hydronephrosis. A 10 mm stone is noted in the left renal pelvis. 4. Trace left pleural effusion. 5. Additional findings as above. Dictated: 11/12/2021 1:23 PM Transcribed: 11/12/2021 1:32 PM Mignon [id number] Electronically signed by: Alan Johnston M.D. 11/12/2021 1:43 PM
--- NOTE | 2021-11-12 19:44 | Surgery Consultation ---
Date of Consultation November 12, 2021 Assessment & Plan (1) Abnormal LFTs: Patient has been admitted on the hospitalist service as he has been primarily treated for his urologic issues: It should be noted that he has been receiving Zosyn There is no definite evidence of cholecystitis on any of the imaging that he has had thus far. His abdomen is entirely benign and pain-free at this time. His med reconciliation was reviewed and he has not been requiring any pain medication. As there is no convincing evidence of cholecystitis on the studies already obtained, a HIDA scan has been ordered and is pending. Further recommendations will be made based on patient's HIDA scan results. History of Present Illness Reason for Consultation: Concern for cholecystitis Attending Physician: Jimmie Smith History of Present Illness This ss a 70-year-old male who was admitted to [facility] on 11/09/2021 secondary to left flank pain. She was found to have a left-sided nephrolithiasis and was taken to the operating room by Dr. Sun on 11/10/2021 secondary to undergo a cystoscopy with a left ureteral stent placement. Since admission to the hospital the patient has been having some vague intermittent right upper quadrant abdominal pain as well as abnormal LFTs he notes that this has been going on for several weeks and does appear to be somewhat worse after eating food. He has not had any nausea or vomiting. He denies any fevers, shakes, chills. Patient notes that he has had prior abdomina l surgeries as he has had a prostatectomy. Abs and imaging that the patient has undergone since hospitalization have been independently reviewed by myself. He did have a CT scan of the abdomen and p javi on 11/09/2021. This showed that his gallbladder was mildly distended with a small amount of sludge. There is no definite gallbladder wall thickening and there is no noted inflammatory changes. He did undergo a liver ultrasound that showed a distended gallbladder with some biliary sludge. No gallstones were noted. There is no sonographic evidence of acute cholecystitis. Chest x-ray did not show any evidence of pneumonia. Patient further underwent an MRCP today that showed he had a distended gallbladder with prominence of the gallbladder wall however no gallstones were noted and there is no evidence of acute cholecystitis on the study. No intra or extrahepatic biliary ductal dilatation. Labs were reviewed and his white blood cell count is 10.3. At time of admission was 12.5. Hemoglobin and hematocrit are 12.0 and 36.3 and his platelet count is normal. Chemistry profile shows sodium and potassium are normal. His BUN and creatinine are 24 and 1.6. At time of admission his creatinine was noted to be 2.1. Patient does have some mild elevation of his LFTs with a total and direct bilirubin of 1.1 and 0.3 respectively. At time of admission his bilirubin was 1.3. Transaminases were slightly elevated with an AST of 50 and an ALT of 65. His alkaline phosphatase was 239. At the time of my interview the patient was resting comfortably in bed. At the time of my exam he had no pain in his abdomen. Allergies Allergy/AdvReac Type Severity Reaction Status Date / Time No Known Allergies Allergy Verified 11/09/21 16:48 Home Medications Medication Instructions Recorded Confirmed Type hydrocodone 5 mg-acetaminophen 325 1 tab PO TID PRN #10 tab 11/08/21 11/09/21 Rx mg tablet ciprofloxacin HCl 500 mg tablet 500 mg PO BID 11/09/21 11/09/21 History Patient History Medical History Chronic back pain History of prostate cancer Nephrolithiasis Osteoarthritis Surgical History History of colonoscopy W/ POLYPECTOMY History of lithotripsy History of prostate biopsy History of prostatectomy History of shoulder surgery RT History of tonsillectomy History of tooth extraction History of total hip arthroplasty BL Family History Father Family history of diabetes mellitus Sister Family history of diabetes mellitus Social History Smoking Status: Never smoker Second Hand Exposure: No; Hx Alcohol Use: Yes Alcohol type: beer Hx Substance Use: No Preferred Language: Peruvian Communication Ability: Effective Dip Filler Required: No Beliefs That Will Affect Care: None Current Living Situation: Spouse Feels Safe at Home: No Is there a partner from a previous relationship who is making you feel unsafe now?: No Assistive Devices: None Review of Systems Constitutional: no fever and no chills Eyes: no diplopia Ear, Nose, Mouth, Throat: no ear pain Respiratory: no cough and no dyspnea Cardiovascular: no chest pain Gastrointestinal: + abdominal pain; no nausea, no vomiting and no diarrhea/loose stools Genitourinary: no dysuria Musculoskeletal: no back pain Integumentary: no rash Neurologic: no localized weakness Physical Exam Constitutional: well developed and well nourished; no acute distress Eyes: no conjunctival abnormality ENMT: Ears: no hearing impairment Neck: trachea midline Respiratory: normal respiratory effort; no respiratory distress and no labored breathing Cardiovascular: Rate/Rhythm: regular rate and regular rhythm Gastrointestinal (Abdomen): Patient's abdomen is soft and nondistended. There is no rebound tenderness or guarding. There is no pain with palpation. Arizmendi sign is negative. Musculoskeletal: No calf tenderness Skin: no rashes Neurologic: moves all extremities Psychiatric: A+Ox3, euthymic affect Results & Data ([facility]) Vital Signs (Past 12 Hours) Vital Signs Temp Pulse Resp BP Pulse Ox 11/12/21 15:22 36.6 C 69 16 108/70 91 PG Care Time/CCT Total # of Minutes Spent Total Time Spent with Patient: Total time spent is greater than 50% in coordination of care (as documented) at patient's floor/unit and/or counseling patient: Coding Level of Care Code 64064 Inpt Consult Level 5 Diagnoses Abnormal LFTs R79.89
[2021-11-12] MEDS: TAMSULOSIN HCL 0.4 MG CAP PO SCH (21:32)
[2021-11-13] MEDS: PIPERACILLIN/TAZOBACTAM 3.375 GM in DEXTROSE 5% 100 ML IV SCH ×2 (00:09→08:21)
[2021-11-13] MEDS: SODIUM CHLORIDE 0.9% 1000ML 1,000 ML IV SCH ×2 (00:10→09:07)
[2021-11-13 08:28] LABS: Hematocrit (blood only) 35.7 % (42-52); Hemoglobin 11.6 g/dL (14.0-18.0); Mean Corpuscular Hemoglobin 31.5 pg (25-34); Mean Corpuscular Hgb Conc 32.5 g/dL (32-36); Mean Platelet Volume 9.3 fL (7.4-10.4); Platelet Count 284 K/uL (130-400); RDW Coefficient of Variation 13.5 % (11.5-14.5); RDW Standard Deviation 48.1 fL (36.4-46.3); Red Blood Count 3.68 M/uL (4.7-6.1); White Blood Count 11.39 K/uL (4.8-10.8)
[2021-11-13 08:44] LABS: Basophils # (auto) 0.04 K/uL (0-0.2); Basophils % (auto) 0.4 %; Eosinophils # (auto) 0.12 K/uL (0-0.5); Eosinophils % (auto) 1.1 %; Immature Granulocytes # (auto) 0.71 K/uL (0.00-0.02); Immature Granulocytes % (auto) 6.2 %; Lymphocytes # (auto) 1.86 K/uL (1.2-3.4); Lymphocytes % (auto) 16.3 %; Monocytes # (auto) 0.83 K/uL (0.11-0.59); Monocytes % (auto) 7.3 %; Neutrophils # (auto) 7.83 K/uL (1.4-6.5); Neutrophils % (auto) 68.7 %
[2021-11-13 09:25] LABS: Albumin Level 3.2 gm/dl (3.4-5.0); BUN Creatinine Ratio 12.2 (10-20); Bilirubin Direct 0.2 mg/dl (0-0.2); Bilirubin,Total 0.7 mg/dl (0.2-1.0); Calcium 8.4 mg/dl (8.5-10.1); Creatinine Clr Calc Pharmacy 47.3 ml/min; Est GFR (Non-African American) 46.6 ml/min; Potassium 4.7 mmol/L (3.5-5.1); Total Protein 5.9 gm/dl (6.0-8.3)
--- NOTE | 2021-11-13 12:43 | Nuclear Medicine Report ---
PROCEDURE: NM hepatobiliary CLINICAL HISTORY: elevated LFTs, eval for milton, GB thickening. COMPARISON: MRCP from 11/12/2021 RADIOPHARMACEUTICAL: 5.6 mCi Tc99m mebrofenin IV TECHNIQUE: Following intravenous administration of Tc-99m mebrofenin , sequential abdominal images w ere obtained. FINDINGS: There is prompt, uniform accumulation of the tracer by the liver. There is anatomic filling of the in trahepatic ducts, common bile duct. Gallbladder begins to fill at minutes. There is anatomic excretio n of the tracer into the duodenum. IMPRESSION: Normal hepatobiliary scintigraphy. ACT 112: Negative or not required by law. Electronically signed by: Ismael Latham M.D. 11/13/2021 12:41 PM
--- NOTE | 2021-11-13 14:11 | Surgery Progress Note ---
Date of Service November 13, 2021 Assessment & Plan (1) Abnormal LFTs: Plan: HIDA normal no plans for cholecystectomy will sign off Admission and Anticipated Discharge Date Admission Date: November 09, 2021 Supervising Physician Co-Signing Physician Notes Patient seen and examined, labs and imaging reviewed, agree with above. 70-year-old male admitted for stent placement for nephrolithiasis. He had some mild liver enzyme elevation and questionable abdominal pain with eating. His work-up is not revealed cholelithiasis or cholecystitis. HIDA scan was performed today was negative. On exam he is afebrile stable vitals. Abdomen soft, nontender, nondistended. Liver enzymes normal. No evidence of cholecystitis or cholelithiasis. Advance diet as tolerated, surgical sign off. Subjective tolerating diet Physical Exam Gastrointestinal (Abdomen): Inspection/Auscultation: abdomen not distended Percussion/Palpation: abdomen soft; abdomen nontender Results & Data ([facility]) Vital Signs (Past 12 Hours) Vital Signs Temp Pulse Resp BP Pulse Ox 11/13/21 08:04 36.5 C 59 L 16 134/75 92 PG Care Time/CCT Total # of Minutes Spent Total Time Spent with Patient: Total time spent is greater than 50% in coordination of care (as documented) at patient's floor/unit and/or counseling patient: Coding Level of Care Code 43955 Subseq Hosp Care Lvl 1 Diagnoses Abnormal LFTs R79.89
--- NOTE | 2021-11-19 23:48 | Discharge Summary ---
Date of Service November 13, 2021 Admission HPI Per Admitting Provider Jimmie Alexandre is a 70yo male presenting with left flank pain. Patient was diagnosed with a large left nephrolithiasis 5 days ago at an outside facility by CT scan - 1cm stone at the left ureteral pelvic junction. Per , no evidence of infection in the urine at that time. He was doing fairly well at home, managing pain. He had an elevated temperature of 100.3 on Saturday therefore contacted his PCP and was given a prescription for Cipro which he has been taking without difficulty as well as hydrocodone. He was seen by Urology this afternoon. Patient presents to the ER for significant flank pain. He has not had fever since starting the antibiotic. Denies rigors. He has some nausea and has not been eating or drinking over the last 5 days. Denies chest pain, cough, SOB, abdominal pain, vomiting, diarrhea, constipation. No additional complaints at this time. ER Course: Tylenol 1gm, Pepcid 20mg IV, NSS x 1L, Zofran 4mg IV, Toradol 15mg IV, Morphine 4mg IV, Zosyn 4.5gm Principal Diagnosis sepsis Discharge Exam General: WN/WD male, resting comfortably in bed, NAD HEENT: head normocephalic, atraumatic, pupils equal and reactive to light, mm slightly dry (continued improvement), trachea midline, no deviation Resp: CTAB,decreased in bases, no w/c/r, on room air CV: RRR, no m/r/g, no edema, pulses palpable GI: increased BS, soft, mild generalized tenderness reported, no tenderness L flank, - CVA, no guarding/rebound : no borja MSK/Neuro: moves all extremities, no focal deficits, answering questions appropriately, not confused, no slurred speech/facial droop Psych: AOX3, cooperative Discharge Data Allergies Allergy/AdvReac Type Severity Reaction Status Date / Time No Known Allergies Allergy Verified 11/09/21 16:48 Consultations 11/09/21 19:17 ED Decision to Admit Stat 11/09/21 21:30 Consult Urology Routine 11/12/21 14:03 Consult General Surgery Routine Procedures Performed Operation Date: 11/10/21 10:30 Actual Procedures p Cystoscopy Retrograde Pyelogram, Left Stent Placement(Left) - Johny Sun MD Ordered Studies 11/09/21 18:20 CT abd pelvis wo con Stat 11/10/21 FL KUB Routine 11/10/21 08:45 US liver Urgent 11/12/21 10:13 MR MRCP Urgent Hospital Course (1) Sepsis: Leukocytosis, tachycardia, +UA, procal 9, MIRIAM with Cr 2.15 with normal baseline (1.1 earlier this week at [facility], WBC was 14k, sent with PO opiates but no abx until PCP sent Cipro after temp 100.3 Saturday). Lactic wnl at 0.8 likely 2nd to obstructing stone, 12x9mm at L UVJ with moderate hydronephrosis urology on consult p Cystoscopy Retrograde Pyelogram, Left Stent Placement(Left) - Royal Sun MD Remains on Zosyn (day 3) Urine cx no growth, FINAL. --> However, patient did take ~6 tablets cipro prior to admission and consideration for total 5 days post-stent to complete treatment Continue flomax Will need outpatient follow up for lithotripsy for definitive stone treatment. Procal 9 --> 3.5 WBC 10.3k but neutrophils elevated compared to day prior along with LFTs * --> Prior RUQ with sludge and wall thickening but no stone/evidence for acute milton * -- discussed with general surgery and will alert if imaging abnormal/formal consultation * ordered MRCP for further eval elevated LFTs and reported n/abd pain overnight after dinner * MRCP was negative. BCx NGTD remain negative Anaplasmosis negative Cr improved (2) Nephrolithiasis: as above, and will need outpt urology follow up for definitive tx with lithotripsy (3) MIRIAM (acute kidney injury): Improving Avoid nephrotoxic agents, renally dose medications initially 2nd to obstructing stone along with dehydration Cr improving, continuing gentle IVF for now, BUN 24/Cr 1.6 (4) Abnormal LFTs: Etiology unclear. Patient had no RUQ tenderness, Negative Arizmendi's. CTAP on admission with sludge/wall thickening but no stone. RUQ without acute milton LFTs improved and then with advancement of diet with abd discomfort/nausea stable but elevated today: TB 1.1, direct 0.3(0.4 prior), AST 46-->50, ALT 55-->65, ALP 229--239 --> As above, checking MRCP, official consult for general surgery if abnormal Anaplasmosis negative (5) Shortness of breath: reported 4/9 when up/ambulating but admitted probably from deconditioning from not eating/drinking prior to admission and just now getting up and moving around CXR with atelectasis stable on room air afebrile No SOB reported today, 93% on RA Continue to encourage use of incentive spirometer Total Time Total Time Spent Total Time Spent (In Minutes): 32 Discharge Plan Discharge Items Patient Disposition: Home - Self-Care Reason For Visit: LEFT SIDED NEPHROLITHIASIS WITH UTI Discharge Diagnosis: left sided nephrolithiasis Activity: Resume your previous activity Non-emergency contact: Primary Care Provider Call non-emergency contact if: you have any medication questions Follow-up/Referrals: Helena Pederson MD [Primary Care Provider] - 11/16/21 12:45 pm (Dr. Rodriguez) Diet: Regular Addtl Attending Provider Instructions: You were treated for a kidney stone. This was treated with a stent placement in your left ureter. You will followup with Urology as an outpatient in 2-6 weeks to have stent removed. Please continue antibitoics for 3 more days, take next dose tonight. If you have 6 tabs in the house, no need to slate picker your script of ciprofloxacin. However, you will need the tamsulosin. The docusate is as needed for constipation. Pending Studies at Discharge: No Stand-Alone Forms: My [facility] [place], Smoking Cessation Medications and DC Order Prescriptions: New acetaminophen 325 mg Tablet 650 mg PO Q4H PRN (Reason: pain) Qty: 30 RF: 0 tamsulosin 0.4 mg Capsule 0.4 mg PO HS Qty: 30 RF: 0 docusate sodium 100 mg Capsule 100 mg PO BID PRN (Reason: constipation) Qty: 60 RF: 0 Continued ciprofloxacin HCl 500 mg tablet 500 mg PO BID Qty: 6 RF: 0 Discontinued hydrocodone-acetaminophen 5-325 mg tablet 1 tab PO TID PRN (Reason: Pain) Qty: 10 RF: 0 Discharge Orders: Discharge Order (Routine); Ordered 11/13/21 Ordered By: Jimmie Smith Admission Data Admit Date/Time: 11/09/21 20:05 Attending Provider: Jimmie Smith Admit Provider: Brianna Glass Primary Care Provider: Helena Pederson Other Providers: Brianna Glass ; Hiram Validvia ; Jason Daniel. Other Interventions: Discharge Summary Assessment (RN) Last Done: 11/13/21 15:26 Coding Level of Care Code D/C DAY MANAGEMENT >30 MINS Diagnoses Sepsis A41.9 Nephrolithiasis N20.0 MIRIAM (acute kidney injury) N17.9 Abnormal LFTs R79.89 Shortness of breath R06.02
--- NOTE | 2021-11-22 10:04 | Coding Query ---
PRESENT ON ADMISSION QUERY To promote full compliance with coding requirements relating to pateint care, physician participation is requested in all cases of front desk associate uncertainty. Please assist us with the question(s) below: Please place an X within the parenthesis (x). The following diagnosis listed in this patient's medical record require physician assistance to determine if they were present on admission (POA) or not. Please advise for each diagnosis whether it was present on admission, not present on admission, or if it was clinically undetermined. 1. SEPSIS - documentation begins on the 11/10/21 Progress Note. (X) Present On Admission ( ) Not Present On Admission ( ) Clinically Undetermined Patient with 2/4 SIRS on admission - HR 98, WBC 12.78 with urinary source of infection. Technically meets diagnosis for Sepsis present on admission Thank you Yina Miramontes *Definition of the present on admission (POA)-Present on admission is defined as present at the time the order for inpatient admission occurs. Conditions that develop during an outpatient encounter prior to a written order for inpatient admission (including emergency department, observation, or outpatient surgery) are considered present on admission. JARRETT
== END 2021-11-13 16:02 | disposition home or self-care (01) | DRG 854 ==
LOC: ED 16:32 → SUATTDRO 20:05 → 3W 20:05